=== PATIENT | male | born 1945 | race Caucasian/White ===

== ENCOUNTER 2020-10-23 22:10 | Emergency (ER) | payer OTHER, MEDICARE ==
[~2020-10-23] VITALS: Ht 190.5 cm; Wt 113.6 kg
--- NOTE | 2020-10-23 22:18 | ED General ---
General Stated Complaint: BLOOD IN URINE History of Present Illness Date Seen by Provider: Oct 23, 2020 Time Seen by Provider: 22:17 Initial Comments 75-year-old male presents with onset of pain with urination and passing clots suddenly today. No preceding illness, fever chills, flank or abdominal pain. History of chronic low back pain and had physical therapy today prior to the onset of this episode. Denies history of UTIs, kidney stones, prostate or bladder problems. Followed at the [facility] here in town. Allergies and Home Medications Allergies Coded Allergies: No Allergy Information Available (Unverified , 10/23/20) Home Medications Sulfamethoxazole/Trimethoprim 1 Each Tablet, 1 EACH PO BID Prescribed by: RADHA LEE on 10/23/20 [id number] Patient Home Medication List Home Medication List Reviewed: Yes Review of Systems Review of Systems Constitutional: no symptoms reported; No fever, No malaise, No weakness, No weight loss Respiratory: no symptoms reported Cardiovascular: no symptoms reported Gastrointestinal: No abdominal pain, No constipation, No diarrhea, No loss of appetite, No nausea, No vomiting Genitourinary: see HPI; No decreased output, No discharge; dysuria; No frequency; hematuria; No hesitancy, No incontinence, No nocturia; pain (resolve d) Musculoskeletal: back pain (chronic); No joint swelling Past Wnaalrg-Fztgxq-Mmjjxt Hx Past Med/Social Hx: Reviewed Nursing Past Med/Soc Hx Physical Exam Vital Signs Capillary Refill : Height, Weight, BMI Height: '" Weight: lbs. oz. kg; BMI Method: General Appearance: No Apparent Distress, WD/WN Gastrointestinal: Normal Bowel Sounds, Non Tender, Soft; No Distended, No Guarding, No Hepatomegaly, No Rebound, No Tenderness Back: Normal Inspection, No CVA Tenderness Progress/Results/Core Measures Suspected Sepsis SIRS Temperature: Pulse: Respiratory Rate: Blood Pressure / Mean: Results/Orders Lab Results Laboratory Tests Test 10/23/20 22:25 Range/Units Urine Color YELLOW Urine Clarity CLEAR Urine pH 6.5 5-9 Urine Specific [place] 1.010 L 1.016-1.022 Urine Protein NEGATIVE NEGATIVE Urine Glucose (UA) NEGATIVE NEGATIVE Urine Ketones NEGATIVE NEGATIVE Urine Nitrite NEGATIVE NEGATIVE Urine Bilirubin NEGATIVE NEGATIVE Urine Urobilinogen 1.0 < = 1.0 MG/DL Urine Leukocyte Esterase NEGATIVE NEGATIVE Urine RBC (Auto) 1+ H NEGATIVE Urine RBC RARE /HPF Urine WBC RARE /HPF Urine Squamous Epithelial Cells RARE /HPF Urine Crystals NONE /LPF Urine Bacteria NEGATIVE /HPF Urine Casts NONE /LPF Urine Mucus NEGATIVE /LPF Urine Culture Indicated NO My Orders Orders - RADHA LEE DO Urinalysis (10/23/20 22:18) Vital Signs/I&O Capillary Refill : Departure Impression Primary Impression: Hematuria Qualified Codes: R31.9 - Hematuria, unspecified Additional Impression: Dysuria Disposition: 01 HOME, SELF-CARE Condition: Stable Departure-Patient Inst. Decision time for Depature: 22:44 Patient Instructions: Blood in the Urine (Hematuria) in Adults Add. Discharge Instructions: Follow up with your doctor at the MD clinic in [facility] in 1 week to recheck your urine for blood. See a doctor sooner if your symptoms get worse....you develop fever, abdominal pain or have difficulty urinating Scripts Sulfamethoxazole/Trimethoprim (Bactrim Ds Tablet) 1 Each Tablet 1 EACH PO BID, #14 TAB Prov: RADHA LEE DO 10/23/20 RADHA LEE DO Oct 23, 2020 22:18
[2020-10-23 22:25] VITALS: BP 141/63
[2020-10-23 22:37] LABS: BILIRUBIN,URINE NEGATIVE (NEGATIVE); CLARITY,URINE CLEAR; COLOR,URINE YELLOW; GLUCOSE, URINE (UA) NEGATIVE (NEGATIVE); KETONES,URINE NEGATIVE (NEGATIVE); LEUKOCYTE ESTERASE ,URINE NEGATIVE (NEGATIVE); NITRITE,URINE NEGATIVE (NEGATIVE); PH,URINE 6.5 (5-9); PROTEIN,URINE NEGATIVE (NEGATIVE)
[2020-10-23 22:38] LABS: BACTERIA,URINE NEGATIVE /HPF; RBC,URINE RARE /HPF; SQUAMOUS EPITHELIAL CELL,UR RARE /HPF; WBC,URINE RARE /HPF
[2020-10-23] MEDS ORDERED: SULF1TAB35 PO (22:46)
== END 2020-10-23 22:53 | disposition home or self-care (01) ==
LOC: ER FS 22:13
DX: R31.9 Hematuria, unspecified (principal); R30.0 Dysuria
CPT/HCPCS: 81000; 99282

== ENCOUNTER → 2021-02-15 | Outpatient (CLI) | payer OTHER, MEDICARE ==
[~2021-02-15] MED LIST: SULF1TAB38 PO
--- NOTE | 2021-02-15 15:11 | Diagnostic Imaging Report ---
Supine abdomen at 2:26. Indication: Hematuria There are no prior studies available for comparison. There is no evidence for a pathological calcification overlying the kidneys or the expected paths of the ureters. There is no mass or organomegaly appreciated either. There is a small amount of gas in both large and small bowel in a nonspecific fashion. There is no sign of a bowel obstruction. There is a moderate amount of fecal material in the ascending and transverse colon. The osseous structures are intact. Impression: 1. The bowel gas pattern is nonspecific. There is no acute abnormality identified. 2. There is no evidence for nephrolithiasis or urolithiasis. If further study for an obstructive calculus is desired however, then CT of the abdomen and pelvis would be recommended. Dictated by: Dictated on workstation # [id number]
== END ==
LOC: RAD FS 14:14
PROVIDERS: ATTEND Urology
DX: R31.9 Hematuria, unspecified (principal)
CPT/HCPCS: 74018

== ENCOUNTER → 2021-09-12 | Outpatient (CLI) | payer OTHER | LOC: CARDFS 12:58 | PROVIDERS: ATTEND Internal Medicine Cardiovascular Disease | DX: I35.2 Nonrheumatic aortic (valve) stenosis with insufficiency (principal); I11.9 Hypertensive heart disease without heart failure; I25.10 Atherosclerotic heart disease of native coronary artery without angina pectoris | CPT/HCPCS: 93306 ==

== ENCOUNTER → 2021-09-25 | Outpatient (CLI) | payer OTHER ==
[~2021-09-25] MED LIST changes: +CATHETER FLUSH 10 ML SYR IVP PRN; +REGADENOSON 0.4 MG/5 ML SYR (LEXISCAN) IV ONE
[2021-09-25 09:17] VITALS: BP 153/83
[2021-09-25 09:31] VITALS: BP 148/69
--- NOTE | 2021-09-25 12:04 | Cardiology Stress Test Report ---
Stress Test Report Date of Procedure/Referring: Date of Procedure: September 25, 2021 PCP Gregg Chávez MD Admitting Physician Yajaira Cruz Indications: HTN Baseline Heart Rate: 63 Baseline Blood Pressure: Blood Pressure Systolic: 148 Blood Pressure Diastolic: 69 Baseline Vitals Vital Signs Date Time Temp Pulse Resp B/P (MAP) Pulse Ox O2 Delivery O2 Flow Rate FiO2 09/25/21 09:17 65 17 153/83 (106) Baseline EKG: Baseline EKG: NSR Summary After explaining the procedure to the patient, he signed a consent and then brought to the stress nuclear laboratory. Patient received 0.4 mg Lexiscan for stress test, ECG, heart rate and blood pressure were monitored continuously. Resting and stress dose of radio tracer were injected, imaging was acquired and reviewed in short axis, horizontal long axis and vertical long axis views. TID: 1.07 SSS: 6 SDS: 2 EF: 43 1. Poor exercise tolerance, patient exercised for 2 minutes 34 seconds achieving 78% of maximal expected heart rate, test was terminated and converted to Lexiscan Myoview stress test. 2. Patient tolerated Lexiscan well 3. Minimal nondiagnostic EKG changes noted during test 4. Reversible ischemia involving the mid to apical anterior wall and anterolateral wall 5. Normal left ventricular size with hypokinesia at the anterior wall, ejection fraction 43% CC: SHANTE Cano BASHAR J MD September 25, 2021 12:04
== END ==
LOC: CARD 08:15
PROVIDERS: ATTEND Internal Medicine Cardiovascular Disease
DX: I10 Essential (primary) hypertension (principal); I25.10 Atherosclerotic heart disease of native coronary artery without angina pectoris
CPT/HCPCS: 78452; 93017

== ENCOUNTER 2021-10-16 07:31 | Day surgery (SDC) | payer OTHER ==
[2021-10-16] VITALS (11 sets, daily range): BP systolic 125–175; BP diastolic 54–71
[~2021-10-16] VITALS: Ht 190.5 cm; Wt 106.5 kg
[~2021-10-16 07:31] MED LIST changes: -CATHETER FLUSH 10 ML SYR IVP PRN; -REGADENOSON 0.4 MG/5 ML SYR (LEXISCAN) IV ONE
[2021-10-16] MEDS ORDERED: NS IV 1000 ML 1,000 ML ONE (07:44)
[2021-10-16] MEDS ORDERED: HEParin (CATH LAB) 2,000 ML IV ONE (07:44)
[2021-10-16] MEDS ORDERED: LIDOCAINE 1% INJ 20 ML VIAL ONE (07:44)
[2021-10-16] MEDS ORDERED: NS IV 1000 ML 1,000 ML IV SCH ×2 (07:45→11:30)
[2021-10-16 08:15] LABS: HEMATOCRIT 42 % (40-54); HEMOGLOBIN 14.3 g/dL (13.3-17.7); MEAN CORPUSCULAR HEMOGLOBIN 31 pg (25-34); MEAN CORPUSCULAR HGB CONC 34 g/dL (32-36); MEAN CORPUSCULAR VOLUME 91 fL (80-99); MEAN PLATELET VOLUME 10.3 fL (9.0-12.2); PLATELET COUNT 155 10^3/uL (130-400); WHITE BLOOD COUNT 6.1 10^3/uL (4.3-11.0)
--- NOTE | 2021-10-16 08:20 | Diagnostic Imaging Report ---
INDICATION: Pre-heart catheterization. TIME OF EXAM: 8:00 a.m. No prior studies are available for comparison. FINDINGS: The heart size is normal. The pulmonary vascularity is unremarkable. The lungs are clear. No infiltrate, effusion or pneumothorax is detected. IMPRESSION: No acute cardiopulmonary process is detected. Dictated by: Dictated on workstation # [id number]
[2021-10-16 08:22] LABS: ALBUMIN 4.3 GM/DL (3.2-4.5)
[2021-10-16 08:23] LABS: CALCIUM 9.8 MG/DL (8.5-10.1)
[2021-10-16 08:25] LABS: TOTAL PROTEIN 7.2 GM/DL (6.4-8.2)
[2021-10-16 08:26] LABS: BILIRUBIN,TOTAL 0.7 MG/DL (0.1-1.0)
[2021-10-16 08:29] LABS: CREATININE SERUM 1.02 MG/DL (0.60-1.30)
[2021-10-16 08:34] LABS: INR 0.9 (0.8-1.4); PROTHROMBIN TIME PATIENT 12.6 SEC (12.2-14.7)
[2021-10-16] MEDS ORDERED: ACET325T38 PO (08:35)
[2021-10-16] MEDS ORDERED: FAMO20TA3 PO (08:35)
[2021-10-16] MEDS ORDERED: CHOL-34 PO (08:35)
[2021-10-16] MEDS ORDERED: TIMO5DRO5 OP (08:35)
[2021-10-16] MEDS ORDERED: MELA3TAB39 PO (08:35)
[2021-10-16] MEDS ORDERED: ASPI-1238 PO (08:35)
[2021-10-16] MEDS ORDERED: LATA7.5D OP (08:35)
[2021-10-16] MEDS ORDERED: POLY17PO6 PO (08:35)
[2021-10-16] MEDS ORDERED: METO-333 PO (08:52)
[2021-10-16] MEDS ORDERED: TIZA-186 PO (08:52)
[2021-10-16] MEDS ORDERED: DULO20CA19 PO (08:52)
[2021-10-16] MEDS ORDERED: FINA5TAB6 PO (08:52)
[2021-10-16] MEDS ORDERED: LOSA25TA41 PO (08:52)
[2021-10-16] MEDS ORDERED: CYPR4TAB41 PO (08:52)
[2021-10-16] MEDS ORDERED: SILD100T67 PO (08:52)
--- NOTE | 2021-10-16 10:44 | Conscious Sedation/ASA ---
Conscious Sedation Pre-Proced Time 10:44 ASA Score 3 For ASA 3 and 4: Consider anesthesia and medical clearance. Also, for patients with a history of failed moderate sedation consider anesthesia. Airway Lungs Heart ASA score ASA 1: a normal healthy patient ASA 2: a patient with a mild systemic disease (mid diabetes, controlled hypertension, obesity x ASA 3: a patient with a severe systemic disease that limits activity (angina, COPD, prior Myocardial infarction) ASA 4: a patient with an incapacitating disease that is a constant threat to life (CHF, renal failure) ASA 5: a moribund patient not expected to survive 24 hrs. (ruptured aneurysm) ASA 6: a declared brain- patient whose organs are being harvested. For emergent operations, add the letter E after the classification Mallampati Classification Grade 3 Sedation Plan Analgesia, Amnesia, Plan communicated to team members, Discussed options with patient/fam, Discussed risks with patient/fam The patient is an appropriate candidate to undergo the planned procedure, sedation, and anesthesia. The patient immediately re-assessed prior to indication. KRISTEN JACKSON MD Oct 16, 2021 10:44
[2021-10-16] MEDS ORDERED: fentaNYL INJ 100 MCG/2 ML AMP ONE (10:45)
[2021-10-16] MEDS ORDERED: MIDAZOLAM 5 MG/5 ML (VERSED) VIAL ONE (10:45)
[2021-10-16] MEDS ORDERED: VERAPAMIL 5 MG/2 ML (CALAN) VIAL IV ONE (10:45)
[2021-10-16] MEDS ORDERED: NITRO DRIP 25000 MCG/D5W 250 ML IV ONE (10:46)
[2021-10-16] MEDS ORDERED: HEParin 1000 UNIT/ML (10ML VIAL) FOR BOLUS ONE (10:46)
--- NOTE | 2021-10-16 11:27 | Discharge Inst-Post CATH ---
Discharge Inst-CATH/EP Problems Reviewed?: Yes Post Cardiac Cath/EP D/C Inst Follow Up/Plan Appointment with Dr Chávez in 2-4 weeks <b>CARDIAC CATH/EP PROCEDURE DISCHARGE INSTRUCTIONS</b> ACTIVITY * Go Home directly and rest. * Limit activity of the leg (or wrist if it was used) for 7 days including aerobics, swimming, jogging, bicycling, etc. * Restrict stair-climbing for 7 days if possible, if not, climb up with your non-cath leg, then bring together on the same step. * Avoid lifting, pushing, pulling or excessive movement of the affected extremity for 7 days. * Customary sexual activity may be resumed after 2 days-use caution not to use a position that strains or causes pain to the affected extremity. * No driving for 24 hours. * NO SMOKING. * Avoid straining for bowel movements for 7 days. * Gentle walking on level ground is allowed. * Returning to work will depend on the type of procedure and the results. Your doctor will discuss this with you. CALL YOUR DOCTOR FOR ANY OF THE FOLLOWING: *If bleeding from the puncture site occurs- Apply gentle pressure to site with clean cloth and call your doctor or EMS. * If a knot or lump forms under the skin, increases in size, or causes pain. * If bruising appears to be worsening or moving further down your leg instead of disappearing. * Temperature above 101 F. CARE OF YOUR GROIN INCISION; * Bruising or purple discoloration of the skin near the puncture site is common. * You may shower only, no bathtub bathing for 5 days. Be careful to avoid slipping as your leg may feel stiff. * If a closure device was used on your femoral artery, please see the attached guide regarding care of the device and your leg. * Leave dressing on FOR 24 hours. CARE OF YOUR WRIST INCISION; * Bruising or purple discoloration of the skin near the puncture site is common. * You may shower. * DO NOT submerge wrist. * Leave dressing on FOR 24 hours. KRISTEN CHÁVEZ MD Oct 16, 2021 11:27
--- NOTE | 2021-10-16 11:35 | Cardiac Cath Report ---
Cardiac Cath Report Physician (s)/Lining Printer (s) Physician KRISTEN JCAKSON MD Pre-Procedure Diagnosis Pre-Procedure Diagnosis: Coronary artery disease Post-Procedure Note Procedure Start Date: Oct 16, 2021 Name of Procedure: Left heart catheterization Findings/Procedure Note PROCEDURE NOTE: 76 years old gentleman with severe aortic valve stenosis, had an abnormal stress test, scheduled for cardiac catheterization possible PTCA. After explaining the procedure to the patient, all pros and cons were explained, all questions were answered. The patient signed the consent and then he was placed on the cardiac catheterization laboratory. Groin was prepped SL fashion local anesthesia was used. Sheath placed in the right radial artery, [place] catheter was used, the J-wire across the aortic valve easily and I advanced the [place] catheter to the left ventricular cavity, pressure was measured, pullback LV to aorta was done, engaged the right and left coronary system. Angiogram was done. At the end of the procedure the sheath was removed. Vascular band was used FINDINGS: Hemodynamics LV 149/8, end-diastolic pressure of 8 Aorta 119/66 mean of 87 Peak to peak gradient was 30 mmHg ANATOMY: Left Main is free of obstructive disease Left Anterior Descending is slightly tortuous artery with mild to moderate disease nonobstructive disease Left Circumflex has mild disease nonobstructive disease Right Coronary Artery is dominant artery with mild disease nonobstructive disease LV Gram was not done, pressure was measured CONCLUSION: 1. Mild to moderate coronary artery disease nonobstructive disease 2. Moderate aortic valve stenosis, peak to peak gradient 30 mmHg DISCUSSION AND RECOMMENDATION: Continue with conservative management Anesthesia Type: Conscious Sedation Estimated blood loss (mL): 10 ml Contrast Amount: 44 ml Total Radiation Dose: 432 mGy Post-Procedure Diagnosis Post-operative diagnosis: Chest pain Coronary artery disease Aortic valve stenosis Hypertension KRISTEN JACKSON MD Oct 16, 2021 11:35
== END 2021-10-16 14:55 | disposition home or self-care (01) ==
LOC: CATH 07:31 → SDC 11:40 → CATH 14:55
PROVIDERS: ATTEND Internal Medicine Cardiovascular Disease
DX: I25.10 Atherosclerotic heart disease of native coronary artery without angina pectoris (principal); I10 Essential (primary) hypertension; I35.0 Nonrheumatic aortic (valve) stenosis; G62.9 Polyneuropathy, unspecified; I65.23 Occlusion and stenosis of bilateral carotid arteries; N40.0 Benign prostatic hyperplasia without lower urinary tract symptoms; K46.9 Unspecified abdominal hernia without obstruction or gangrene; H91.90 Unspecified hearing loss, unspecified ear; E78.2 Mixed hyperlipidemia; F32.A Depression, unspecified; F43.10 Post-traumatic stress disorder, unspecified; Z87.891 Personal history of nicotine dependence; Z79.899 Other long term (current) drug therapy
CPT/HCPCS: 36415; 71045; 80053; 80061; 85027; 85610; 85730; 87081; 93005; 93458

== ENCOUNTER 2022-08-19 19:27 | Observation (INO) | payer OTHER, MEDICARE ==
[~2022-08-19] VITALS: Ht 190 cm; Wt 115.6 kg
[~2022-08-19 19:27] MED LIST changes: +ACET325T38 PO; +ASPI-1238 PO; +CHOL-34 PO; +CYPR4TAB41 PO; +DULO20CA19 PO; +FAMO20TA3 PO; +FINA5TAB6 PO; +LATA7.5D OP; +LOSA25TA41 PO; +MELA3TAB39 PO; +METO-333 PO; +POLY17PO6 PO; +SILD100T67 PO; +TIMO5DRO5 OU; +TIZA-186 PO
--- NOTE | 2022-08-19 19:44 | ED General ---
General Stated Complaint: WEAKNESS,SOB,FALL,L HIP PAIN History of Present Illness Date Seen by Provider: Aug 19, 2022 Time Seen by Provider: 19:36 Initial Comments 77-year-old male with PMH of HTN/negative stress test and negative 1 month ago in [place], is here with complaints of ongoing shortness of breath and chest pain on exertion only, for the past 4 weeks or so. Patient states that he ham ot walk more than 100 m without becoming short of breath. Patient also has associated palpitations and feels like his heart is racing. Patient does not have any history of irregular heart rhythms. Denies fever and chills, cough, respiratory symptoms, abdominal pain, diarrhea, nausea and vomiting, dizziness. Allergies and Home Medications Allergies Coded Allergies: omeprazole (Verified Allergy, Unknown, 10/16/21) tramadol (Verified Allergy, Unknown, 10/16/21) Patient Home Medication List Home Medication List Reviewed: Yes Acetaminophen (Tylenol) 325 Mg Tablet, 650 MG PO Q6H PRN for PAIN-MILD (1-4), (Reported) Entered as Reported by: GERRY MURILLO on 10/16/21 0835 Aspirin (Aspirin EC) 81 Mg Tablet.dr, 81 MG PO HS, (Reported) Entered as Reported by: GERRY MURILLO on 10/16/21 0835 Cholecalciferol (Vitamin D3) (Vitamin D3) 25 Mcg (1000 Unit) Tablet, 25 MCG PO DAILY, (Reported) Entered as Reported by: GERRY MURILLO on 10/16/21 0835 Cyproheptadine HCl (Cyproheptadine HCl) 4 Mg Tablet, 8 MG PO HS, (Reported) Entered as Reported by: GERRY MURILLO on 10/16/21 08 Duloxetine HCl (Duloxetine HCl) 20 Mg Capsule.dr, 20 MG PO HS, (Reported) Entered as Reported by: GERRY MURILLO on 10/16/21 08 Famotidine (Acid Cricket Coach (FAMOTIDINE)) 20 Mg Tablet, 20 MG PO DAILY, (Reported) Entered as Reported by: GERRY MURILLO on 10/16/21 08 Finasteride (Finasteride) 5 Mg Tablet, 5 MG PO HS, (Reported) Entered as Reported by: GERRY MURILLO on 10/16/21851 Latanoprost/Pf (Latanoprost 0.005% Eye Drop) 0.005 % Drops, 1 DROP OP DAILY, ( Reported) Entered as Reported by: GERRY MURILLO on 10/16/21834 Losartan Potassium (Losartan Potassium) 25 Mg Tablet, 25 MG PO HS, (Reported) Entered as Reported by: GERRY MURILLO on 10/16/21851 Melatonin (Melatonin) 3 Mg Tablet, 9-12 MG PO HS PRN for SLEEP, (Reported) Entered as Reported by: GERRY MURILLO on 10/16/21834 Metoprolol Tartrate (Metoprolol Tartrate) 25 Mg Tablet, 12.5 MG PO HS, (Reported) Entered as Reported by: GERRY MURILLO on 10/16/21851 Polyethylene Glycol 3350 (Miralax) 17 Gram Powd.pack, 17 GM PO DAILY PRN for CONSTIPATION-2ND LINE, (Reported) Entered as Reported by: GERRY MURILLO on 10/16/21834 Sildenafil Citrate (Sildenafil Citrate) 100 Mg Tablet, 100 MG PO DAILY PRN for ED, (Reported) Entered as Reported by: GERRY MURILLO on 10/16/21851 Timolol Maleate (Timolol Maleate 0.5%) 0.5 % Drops, 1 DROP OP BID, (Reported) Entered as Reported by: GERRY MURILLO on 10/16/21834 Tizanidine HCl (Tizanidine HCl) 4 Mg Tablet, 2 MG PO BID PRN for MUSCLE SPASMS, (Reported) Entered as Reported by: GERRY MURILLO on 10/16/21851 Review of Systems Review of Systems Constitutional: no symptoms reported EENTM: no symptoms reported Respiratory: dyspnea on exertion Cardiovascular: chest pain, palpitations Gastrointestinal: no symptoms reported Genitourinary: no symptoms reported Musculoskeletal: no symptoms reported Skin: no symptoms reported Psychiatric/Neurological: No Symptoms Reported Hematologic/Lymphatic: No Symptoms Reported Immunological/Allergic: no symptoms reported Past Fhroivd-Ortrac-Jghhxd Hx Seasonal Allergies Seasonal Allergies: No Past Medical History Surgeries: Yes Gallbladder, Orthopedic Respiratory: No Cardiac: Yes High Cholesterol, Hypertension Neurological: No Genitourinary: Yes Benign Prostatic Hyperpl Gastrointestinal: No Musculoskeletal: Yes Chronic Back Pain Endocrine: No HEENT: No Cancer: No Psychosocial: No Integumentary: No Blood Disorders: No Physical Exam Vital Signs Vital Signs - First Documented 4/11/23 19:35 Temp 36.9 Pulse 130 Resp 20 B/P (MAP) 153/86 (108) Pulse Ox 94 O2 Delivery Room Air Capillary Refill : Height, Weight, BMI Height: '" Weight: lbs. oz. kg; 29.34 BMI Method: General Appearance: No Apparent Distress, WD/WN HEENT: PERRL/EOMI, Normal ENT Inspection Neck: Full Range of Motion, Normal Inspection Respiratory: Chest Non Tender, Lungs Clear, Normal Breath Sounds Cardiovascular: No Edema, Normal Peripheral Pulses, Systolic Murmur, Irregularly Irregular, Tachycardia Gastrointestinal: Normal Bowel Sounds, Non Tender, Soft Back: Normal Inspection Extremity: Normal Range of Motion Neurologic/Psychiatric: Alert, Oriented x3, No Motor/Sensory Deficits, Normal Mood/Affect, principal technical writer II-XII Norm as Tested Skin: Normal Color Lymphatic: No Adenopathy Focused Exam Lactate Level 08/19/22 19:38: Lactic Acid Level 2.59*H Lactic Acid Level Laboratory Tests Test 08/19/22 19:38 Lactic Acid Level 2.59 MMOL/L (0.50-2.00) *H Progress/Results/Core Measures Suspected Sepsis SIRS Temperature: Pulse: Respiratory Rate: Laboratory Tests 08/19/22 19:38: White Blood Count 7.5 Blood Pressure / Mean: 08/19/22 19:38: Lactic Acid Level 2.59*H Laboratory Tests 08/19/22 19:38: Creatinine 1.06, INR Comment 0.9, Platelet Count 194, Total Bilirubin 0.5 Results/Orders Lab Results Laboratory Tests Test 08/19/22 19:38 08/19/22 22:13 Range/Units White Blood Count 7.5 4.3-11.0 10^3/uL Red Blood Count 4.62 4.30-5.52 10^6/uL Hemoglobin 14.4 13.3-17.7 g/dL Hematocrit 42 40-54 % Mean Corpuscular Volume 90 80-99 fL Mean Corpuscular Hemoglobin 31 25-34 pg Mean Corpuscular Hemoglobin Concent 35 32-36 g/dL Red Cell Distribution Width 14.0 10.0-14.5 % Platelet Count 194 130-400 10^3/uL Mean Platelet Volume 11.3 9.0-12.2 fL Immature Granulocyte % (Auto) 0 % Neutrophils (%) (Auto) 63 42-75 % Lymphocytes (%) (Auto) 28 12-44 % Monocytes (%) (Auto) 6 0-12 % Eosinophils (%) (Auto) 2 0-10 % Basophils (%) (Auto) 0 0-10 % Neutrophils # (Auto) 4.7 1.8-7.8 X 10^3 Lymphocytes # (Auto) 2.1 1.0-4.0 X 10^3 Monocytes # (Auto) 0.5 0.0-1.0 X 10^3 Eosinophils # (Auto) 0.2 0.0-0.3 10^3/uL Basophils # (Auto) 0.0 0.0-0.1 10^3/uL Immature Granulocyte # (Auto) 0.0 0.0-0.1 10^3/uL Prothrombin Time 12.4 12.2-14.7 SEC INR Comment 0.9 0.8-1.4 Activated Partial Thromboplast Time 27 24-35 SEC D-Dimer 0.69 H 0.00-0.49 UG/ML Sodium Level 140 135-145 MMOL/L Potassium Level 4.1 3.6-5.0 MMOL/L Chloride Level 104 98-107 MMOL/L Carbon Dioxide Level 23 21-32 MMOL/L Anion Gap 13 5-14 MMOL/L Blood Urea Nitrogen 19 H 7-18 MG/DL Creatinine 1.06 0.60-1.30 MG/DL Estimat Glomerular Filtration Rate 71 BUN/Creatinine Ratio 18 Glucose Level 139 H 70-105 MG/DL Lactic Acid Level 2.59 *H 0.50-2.00 MMOL/L Calcium Level 10.3 H 8.5-10.1 MG/DL Corrected Calcium 9.9 8.5-10.1 MG/DL Magnesium Level 2.0 1.6-2.4 MG/DL Total Bilirubin 0.5 0.1-1.0 MG/DL Aspartate Amino Transf (AST/SGOT) 33 5-34 U/L Alanine Aminotransferase (ALT/SGPT) 32 0-55 U/L Alkaline Phosphatase 111 40-136 U/L Troponin I < 0.30 <0.30 NG/ML Pro-B-Type Natriuretic Peptide 989.9 H <450.0 PG/ML Total Protein 7.4 6.4-8.2 GM/DL Albumin 4.5 3.2-4.5 GM/DL My Orders Orders - MANUEL FLORES MD Chest 1 View Ap/Pa Only (08/19/22 19:44) Cbc With Automated Diff (08/19/22 19:44) Comprehensive Metabolic Panel (08/19/22 19:44) Fibrin Degradation Products (08/19/22 19:44) Drug Screen Stat (Urine) (08/19/22 19:44) Lactic Acid Analyzer (08/19/22:44) Magnesium (08/19/22 19:44) Protime With Inr (08/19/22:44) Partial Thromboplastin Time (08/19/22 19:44) Ua Culture If Indicated (08/19/22:44) Probnp Fs (08/19/22:44) Troponin I Fs (08/19/22 19:44) Ekg Tracing (08/19/22 20:10) Monitor-Rhythm Ecg Trace Only (08/19/22 20:10) Ed Iv/Invasive Line Start (08/19/22 20:11) Diltiazem Injection (Cardizem Injection) (08/19/22 20:15) Diltiazem Drip Pre-Mix (Cardizem Drip Pr (08/19/22 20:12) Cbc With Automated Diff (08/19/22 20:39) Comprehensive Metabolic Panel (08/19/22 20:39) Drug Screen Stat (Urine) (08/19/22 20:39) Fibrin Degradation Products (08/19/22 20:39) Lactic Acid Analyzer (08/19/22 20:39) Magnesium (08/19/22 20:39) Partial Thromboplastin Time (08/19/22 20:39) Probnp Fs (08/19/22 20:39) Protime With Inr (08/19/22 20:39) Troponin I Fs (08/19/22 20:39) Ua Culture If Indicated (08/19/22 20:39) Hydrocodone/Apap 5/325 Tablet (Lortab 5 (08/19/22 21:30) Ed Iv/Invasive Line Start (08/19/22 21:53) Ns Iv 1000 Ml (Sodium Chloride 0.9%) (08/19/22 21:53) Catheter(Urinary) Insert & Ass 03,15 (08/19/22 21:54) Lidocaine 2% (Urojet) (Xylocaine Urojet) (08/19/22 22:00) Ed Admission (Communication) (08/19/22 22:29) Enoxaparin Injection (Lovenox Injection) (08/19/22 22:30) Medications Given in ED Current Medications Medications Dose Ordered Sig/Eriberto Route Start Time Stop Time Status Last Admin Dose Admin Acetaminophen/ Hydrocodone Bitart 1 ea ONCE ONCE PO 08/19/22 21:30 08/19/22 21:31 DC 08/19/22 21:32 1 EA Diltiazem HCl 10 mg ONCE ONCE IVP 08/19/22 20:15 08/19/22 20:16 DC 08/19/22 20:30 10 MG Enoxaparin Sodium 80 mg ONCE ONCE SC 08/19/22 22:30 08/19/22 22:31 DC 08/19/22 22:41 80 MG Vital Signs/I&O 08/19/22 08/19/22 08/19/22 19:35 20:30 20:37 Temp 36.9 Pulse 130 129 110 Resp 20 B/P (MAP) 153/86 (108) 155/62 141/58 Pulse Ox 94 O2 Delivery Room Air Capillary Refill : Progress Note : Progress Note 1. NEW ONSET A-FIB WITH RVR & DEHYDRATION: - CXR: no acute findings - EKG: A-fib with RVR - Troponin: undetected - CBC/CMP: unremarkable - D-dimer: 0.69, but age related elevation - UA - Lactic acid is 2.59 - Cardizem bolus and drip STAT - Lovenox 80mg s.c. STAT - NS IVF bolus STAT - Pt's mixing picker tender is Dr Chávez. Pt had a negative stress test and cath approximately one month ago - Accepted for admission to ICU ECG Initial ECG Impression Date: Aug 19, 2022 Initial ECG Impression Time: 19:38 Initial ECG Rate: 122 Initial ECG Rhythm: A Fib/Flutter Initial ECG Intervals irregular Initial ECG Impression: Atrial Fibrillation w/RVR Initial ECG Comparisson: No Previous ECG Available Diagnostic Imaging Diagonstic Imaging: Xray Plain Films/CT/US/NM/MRI: chest Departure Communication (Admissions) Time/Spoke to Admitting Phy: 22:[address] Gonzales, and accepted for admission to ICU Impression Primary Impression: New onset a-fib Disposition: 30 STILL A PATIENT Condition: Improved Admissions Decision to Admit Reason: Admit from ER (General) Decision to Admit/Date: Aug 19, 2022 Time/Decision to Admit Time: 22:00 Transfer Method of Transfer: EMS Departure-Patient Inst. Referrals: SIM MARTINEZ (PCP/Family) Primary Care Physician MANUEL FLORES MD Aug 19, 2022 19:44
[2022-08-19] MEDS ORDERED: dilTIAZem DRIP PRE-MIX 125 ML IV STA (20:12)
[2022-08-19] MEDS ORDERED: HYDROcodone/APAP 5 MG/325 MG (LORTAB) TAB PO ONE (21:30)
[2022-08-19 21:42] LABS: ALANINE AMINOTRANSFERASE 32 U/L (0-55); ALKALINE PHOSPHATASE 111 U/L (40-136); BILIRUBIN,TOTAL 0.5 MG/DL (0.1-1.0); BUN/CREATININE RATIO 18; CALCIUM 10.3 MG/DL (8.5-10.1); CARBON DIOXIDE 23 MMOL/L (21-32); CHLORIDE 104 MMOL/L (98-107); CREATININE SERUM 1.06 MG/DL (0.60-1.30); GFR ESTIMATED 71; GLUCOSE 139 MG/DL (70-105); POTASSIUM 4.1 MMOL/L (3.6-5.0); SODIUM 140 MMOL/L (135-145)
[2022-08-19 21:43] LABS: ALBUMIN 4.5 GM/DL (3.2-4.5); TOTAL PROTEIN 7.4 GM/DL (6.4-8.2)
[2022-08-19 21:45] LABS: HEMATOCRIT 42 % (40-54); HEMOGLOBIN 14.4 g/dL (13.3-17.7); MEAN CORPUSCULAR HEMOGLOBIN 31 pg (25-34); MEAN CORPUSCULAR HGB CONC 35 g/dL (32-36); MEAN CORPUSCULAR VOLUME 90 fL (80-99); WHITE BLOOD COUNT 7.5 10^3/uL (4.3-11.0)
[2022-08-19 21:46] LABS: BASOPHILS % (AUTO) 0 % (0-10); EOSINOPHILS # (AUTO) 0.2 10^3/uL (0.0-0.3); EOSINOPHILS % (AUTO) 2 % (0-10); LYMPHOCYTES # (AUTO) 2.1 X 10^3 (1.0-4.0); LYMPHOCYTES % (AUTO) 28 % (12-44); MEAN PLATELET VOLUME 11.3 fL (9.0-12.2); MONOCYTES # (AUTO) 0.5 X 10^3 (0.0-1.0); MONOCYTES % (AUTO) 6 % (0-12); NEUTROPHILS # (AUTO) 4.7 X 10^3 (1.8-7.8); NEUTROPHILS % (AUTO) 63 % (42-75); PLATELET COUNT 194 10^3/uL (130-400)
[2022-08-19] MEDS ORDERED: NS IV 1000 ML 1,000 ML IV STA (21:53)
[2022-08-19 21:57] LABS: FIBRIN DEGRADATION PRODUCTS 0.69 UG/ML (0.00-0.49); INR 0.9 (0.8-1.4); PROTHROMBIN TIME PATIENT 12.4 SEC (12.2-14.7)
[2022-08-19] MEDS ORDERED: LIDOCAINE UROJET 2% GEL 10 ML PKG TOP ONE (22:00)
[2022-08-19 22:22] LABS: BILIRUBIN,URINE NEGATIVE (NEGATIVE); CLARITY,URINE CLEAR; COLOR,URINE YELLOW; GLUCOSE, URINE (UA) NEGATIVE (NEGATIVE); KETONES,URINE NEGATIVE (NEGATIVE); LEUKOCYTE ESTERASE ,URINE NEGATIVE (NEGATIVE); NITRITE,URINE NEGATIVE (NEGATIVE); PROTEIN,URINE NEGATIVE (NEGATIVE)
[2022-08-19] MEDS ORDERED: ENOXAPARIN 80 MG/0.8 ML (LOVENOX) SYR SC ONE (22:30)
[2022-08-19 22:56] LABS: AMPHETAMINE SCREEN, URINE NEGATIVE (NEGATIVE); BARBITURATE SCREEN URINE NEGATIVE (NEGATIVE); BENZODIAZEPINES SCREEN URINE NEGATIVE (NEGATIVE); CANNABINOID SCREEN, URINE NEGATIVE (NEGATIVE); COCAINE SCREEN URINE NEGATIVE (NEGATIVE); METHADONE STAT NEGATIVE (NEGATIVE); OPIATE SCREEN URINE NEGATIVE (NEGATIVE); OXYCODONE STAT NEGATIVE (NEGATIVE); PROPOXYPHENE STAT NEGATIVE (NEGATIVE); TRICYCLIC ANTIDEPRESSANTS SCRE NEGATIVE (NEGATIVE)
[2022-08-19 23:03] LABS: BACTERIA,URINE NEGATIVE /HPF; SQUAMOUS EPITHELIAL CELL,UR 0-2 /HPF; WBC,URINE 0-2 /HPF
[2022-08-19 23:04] LABS: HYALINE CASTS, URINE RARE /LPF
[2022-08-20] MEDS ORDERED: NS IV 1000 ML 1,000 ML ONE (01:12)
[2022-08-20] MEDS ORDERED: NS IV 500 ML 500 ML IV PRN ×2 (01:30→05:15)
[2022-08-20] MEDS ORDERED: MELATONIN 3 MG TABLET PO PRN ×2 (01:45→05:15)
[2022-08-20] MEDS ORDERED: ACETAMINOPHEN 325 MG TABLET PO PRN ×2 (01:45→05:15)
[2022-08-20] MEDS ORDERED: dilTIAZem DRIP 125 MG/125 ML DRIP IV SCH (01:45)
[2022-08-20] MEDS ORDERED: KETOROLAC 15 MG/ML VIAL IV PRN (01:45)
[2022-08-20] MEDS: NS IV 1000 ML 1,000 ML IV SCH ×3 (02:02→19:51)
--- NOTE | 2022-08-20 03:12 | Tele-ICU Progress Note ---
Progress Note 77M with HTN transferred from [facility] for new onset afib with RVR. He was given diltiazem 10 mg IV x1. He is now in afib with rate of 80. Continuous diltiazem infusion was ordered but never started. Noted to have negative stress test 1 month ago. - afib: Now rate controlled. Electroytes normal. Troponin negative. Cardiology managing. Focused Exam Lactate Level 08/19/22 19:38: Lactic Acid Level 2.59*H 08/19/22 22:45: Lactic Acid Level 1.65 Height, Weight, BMI Height: '" Weight: lbs. oz. kg; 32.40 BMI Method: KARLA VALDIVIA MD Aug 20, 2022 03:12
[2022-08-20 04:04] LABS: BASOPHILS % (AUTO) 0 % (0-10); EOSINOPHILS # (AUTO) 0.1 10^3/uL (0.0-0.3); EOSINOPHILS % (AUTO) 2 % (0-10); HEMATOCRIT 37 % (40-54); HEMOGLOBIN 12.6 g/dL (13.3-17.7); LYMPHOCYTES # (AUTO) 1.7 10^3/uL (1.0-4.0); LYMPHOCYTES % (AUTO) 24 % (12-44); MEAN CORPUSCULAR HEMOGLOBIN 31 pg (25-34); MEAN CORPUSCULAR HGB CONC 34 g/dL (32-36); MEAN CORPUSCULAR VOLUME 90 fL (80-99); MONOCYTES # (AUTO) 0.6 10^3/uL (0.0-1.0); MONOCYTES % (AUTO) 8 % (0-12); NEUTROPHILS # (AUTO) 4.8 10^3/uL (1.8-7.8); NEUTROPHILS % (AUTO) 66 % (42-75); PLATELET COUNT 143 10^3/uL (130-400); WHITE BLOOD COUNT 7.3 10^3/uL (4.3-11.0)
[2022-08-20 04:19] LABS: POTASSIUM 3.8 MMOL/L (3.6-5.0)
[2022-08-20 04:20] LABS: CALCIUM 9.2 MG/DL (8.5-10.1)
[2022-08-20 04:25] LABS: CREATININE SERUM 0.85 MG/DL (0.60-1.30); PHOSPHORUS 3.4 MG/DL (2.3-4.7)
[2022-08-20 04:27] LABS: MAGNESIUM 1.8 MG/DL (1.6-2.4)
[2022-08-20] MEDS: KCL 20 MEQ TAB (K-DUR) PO SCH (04:35)
[2022-08-20] MEDS: MAGNESIUM 1 GM/100 ML IVPB 100 ML IV SCH ×2 (04:35→04:46)
[2022-08-20] MEDS: POTASSIUM CL 10MEQ/50ML IVPB 50 ML IV SCH (04:35)
[2022-08-20] MEDS ORDERED: BISACODYL 10 MG SUPP (DULCOLAX) PR PRN (05:15)
[2022-08-20] MEDS ORDERED: ONDANSETRON 4 MG/2 ML (SDV) Z0FRAN IV PRN (05:15)
[2022-08-20] MEDS ORDERED: polyethylene glycoL POWDER 17 GM (MIRALAX) PACK PO PRN (05:15)
[2022-08-20] MEDS ORDERED: ONDANSETRON 4 MG (ZOFRAN) ORAL DISSOLVE TAB PO PRN (05:15)
[2022-08-20] MEDS ORDERED: HYDROmorphone 2 MG/ML VIAL (DILAUDID) IV PRN (05:15)
[2022-08-20] MEDS ORDERED: MILK OF MAGNESIA 400 MG/5 ML 30 ML UDC PO PRN (05:15)
[2022-08-20] MEDS ORDERED: diphenhydrAMINE 50 MG/ML INJ (BENADRYL) IVP PRN (05:15)
[2022-08-20] MEDS ORDERED: CALCIUM CARBONATE 500 MG (TUMS) TAB.CHEW PO PRN (05:15)
[2022-08-20] MEDS ORDERED: diphenhydrAMINE 25 MG TAB (BENADRYL) PO PRN (05:15)
[2022-08-20] MEDS ORDERED: ANTACID SUSP 30 ML UDC (MYLANTA) PO PRN (05:15)
[2022-08-20] MEDS ORDERED: LACTULOSE SYRUP 10GM/15ML (ENULOSE) 30ML UDC PO PRN (05:15)
[2022-08-20 05:18] LABS: ALBUMIN 3.7 GM/DL (3.2-4.5)
[2022-08-20 05:21] LABS: TOTAL PROTEIN 6.3 GM/DL (6.4-8.2)
[2022-08-20 05:23] LABS: BILIRUBIN,TOTAL 0.5 MG/DL (0.1-1.0)
[2022-08-20 05:26] LABS: BILIRUBIN,DIRECT 0.2 MG/DL (0.0-0.3); BILIRUBIN,INDIRECT 0.3 MG/DL
[2022-08-20] MEDS ORDERED: POTASSIUM CL 10MEQ/50ML IVPB 50 ML IV SCH (06:00)
[2022-08-20] MEDS ORDERED: KCL 20 MEQ TAB (K-DUR) PO SCH (06:00)
[2022-08-20] MEDS ORDERED: MAGNESIUM 1 GM/100 ML IVPB 100 ML IV SCH (06:00)
--- NOTE | 2022-08-20 07:39 | History & Physical ---
ARIADNE LEDEZMA 08/20/22 0739: History of Present Illness History of Present Illness Reason for visit/HPI CC: New onset Afib RVR and dehydration HPI: Mr. Johnson is a 77 yo male with a pmhx significant for HTN, high cholesterol, and BPH. Pt presented to the ED on the day of admission with cc of weakness and SOB. In ED patient reports that he has been experiencing these symptoms for the past 4 weeks. Pt does not have a history of irregular heart rhythms. Pt received negative stress test 1 month ago. 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 Today he reports that he is feeling better. He still feels weak and SOB on exertion. Pt denies any falls recently. Pt denies any CP, nausea, vomiting, abdominal pain, or dizziness. Pt denies any new or worsening symptoms. Date of Admission Aug 20, 2022 at 00:40 Date Seen by a Provider: Aug 20, 2022 Time Seen by a Provider: 07:34 I consulted on this patient on 08/20/22 07:33 Attending Physician Yajaira Cruz Admitting Physician Admitting Physician: Kaela Bae DO Attending Physician: Kaela Bae DO Consult Allergies and Home Medications Allergies Coded Allergies: omeprazole (Verified Allergy, Unknown, 10/16/21) tramadol (Verified Allergy, Unknown, 10/16/21) Patient Home Medication List Home Medication List Reviewed: Yes Acetaminophen (Tylenol) 325 Mg Tablet, 650 MG PO Q6H PRN for PAIN-MILD (1-4), (Reported) Entered as Reported by: GERRY MURILLO on 10/16/21834 Last Action: Reviewed Aspirin (Aspirin EC) 81 Mg Tablet., 81 MG PO HS, (Reported) Entered as Reported by: GERRY MURILLO on 10/16/21834 Last Action: Reviewed Cholecalciferol (Vitamin D3) (Vitamin D3) 25 Mcg (1000 Unit) Tablet, 25 MCG PO DAILY, (Reported) Entered as Reported by: GERRY MURILLO on 10/16/21834 Last Action: Reviewed Cyproheptadine HCl (Cyproheptadine HCl) 4 Mg Tablet, 8 MG PO HS, (Reported) Entered as Reported by: GERRY MURILLO on 10/16/21851 Last Action: Reviewed Duloxetine HCl (Duloxetine HCl) 20 Mg Capsule., 20 MG PO HS, (Reported) Entered as Reported by: GERRY MURILLO on 10/16/21851 Last Action: Reviewed Famotidine (Acid Options Trader (FAMOTIDINE)) 20 Mg Tablet, 20 MG PO BID, (Reported) Entered as Reported by: GERRY MURILLO on 10/16/21834 Last Action: Reviewed Finasteride (Finasteride) 5 Mg Tablet, 5 MG PO HS, (Reported) Entered as Reported by: GERRY MURILLO on 10/16/21851 Last Action: Reviewed Ibuprofen (Ibuprofen) 200 Mg Tablet, 200 MG PO BID PRN for PAIN-MILD (1-4), (Reported) Entered as Reported by: NAOMY HORVATH on 08/20/221551 Last Action: Reviewed Latanoprost (Xalatan) 0.005 % Drops, 1 DROP OU HS, (Reported) Entered as Reported by: NAOMY HORVATH on 08/20/221551 Last Action: Reviewed Losartan Potassium (Losartan Potassium) 25 Mg Tablet, 25 MG PO HS, (Reported) Entered as Reported by: GERRY MURILLO on 10/16/21851 Last Action: Reviewed Lovastatin (Lovastatin) 40 Mg Tablet, 40 MG PO HS, (Reported) Entered as Reported by: NAOMY HORVATH on 08/20/221551 Last Action: Reviewed Melatonin (Melatonin) 3 Mg Tablet, 12 MG PO HS, (Reported) Entered as Reported by: GERRY MURILLO on 10/16/21834 Last Action: Reviewed Methyl Salicylate/Menthol (Analgesic [place] 15%-10%) 15 %-10 % Cream..g., 1 APPLIC TP TID PRN for PAIN-BREAKTHROUGH, (Reported) Entered as Reported by: NAOMY HORVATH on 08/20/221551 Last Action: Reviewed Metoprolol Tartrate (Metoprolol Tartrate) 25 Mg Tablet, 12.5 MG PO HS, (Reported) Entered as Reported by: GERRY MURILLO on 10/16/21851 Last Action: Reviewed Multivitamin (Multivitamin) 1 Each Tablet, 1 EACH PO DAILY, (Reported) Entered as Reported by: ANOMY HORVATH on 08/20/221551 Last Action: Reviewed Polyethylene Glycol 3350 (Miralax) 17 Gram Powd.pack, 17 GM PO DAILY PRN for CONSTIPATION-2ND LINE, (Reported) Entered as Reported by: NAOMY HORVATH on 08/20/22 7342 Last Action: Reviewed Timolol Maleate (Timolol Maleate 0.5%) 0.5 % Drops, 1 DROP OU BID, (Reported) Entered as Reported by: GERRY MURILLO on 10/16/21834 Last Action: Reviewed Tizanidine HCl (Tizanidine HCl) 4 Mg Tablet, 2 MG PO BID PRN for MUSCLE SPASMS, (Reported) Entered as Reported by: GERRY MURILLO on 10/16/21851 Last Action: Reviewed Discontinued Medications Latanoprost/Pf (Latanoprost 0.005% Eye Drop) 0.005 % Drops, 1 DROP OP DAILY, (Reported) Discontinued Reason: Prescription changed Entered as Reported by: GERRY MURILLO on 10/16/21834 Polyethylene Glycol 3350 (Miralax) 17 Gram Powd.pack, 17 GM PO DAILY PRN for CONSTIPATION-2ND LINE, (Reported) Discontinued Reason: Duplicate Order Entered as Reported by: GERRY MURILLO on 10/16/21834 Last Action: Discontinued Sildenafil Citrate (Sildenafil Citrate) 100 Mg Tablet, 100 MG PO DAILY PRN for ED, (Reported) Discontinued Reason: No Longer Taking Entered as Reported by: GERRY MURILLO on 10/16/21851 Last Action: Discontinued Past Ijxioro-Ztmmzz-Fikjhv Hx Patient Social History Tobacco Use?: No Substance use?: No Alcohol Use?: No Pt feels they are or have been: No Seasonal Allergies Seasonal Allergies: No Current Status Advance Directives: No Communicates: Verbally Primary Language: Croatian Preferred Spoken Language: Croatian Is interpretation needed?: No Past Medical History Surgeries: Gallbladder, Orthopedic High Cholesterol, Hypertension Benign Prostatic Hyperpl Chronic Back Pain Blood Disorders: No Review of Systems Constitutional: No chills, No diaphoresis, No fever; weakness Respiratory: No cough, No dyspnea on exertion; short of breath Cardiovascular: No chest pain Gastrointestinal: no symptoms reported Musculoskeletal: no symptoms reported Skin: no symptoms reported Psychiatric/Neurological: No Symptoms Reported All Other Systems Reviewed Negative Unless Noted: Yes Physical Exam Vital Signs Vital Signs - First Documented 08/19/22 08/20/22 19:35 08:09 Temp 36.9 Pulse 130 Resp 20 B/P (MAP) 153/86 (108) Pulse Ox 94 O2 Delivery Room Air FiO2 21 Capillary Refill : Less Than 3 Seconds Height, Weight, BMI Height: '" Weight: lbs. oz. kg; 32.40 BMI Method: General Appearance: No Apparent Distress, WD/WN HEENT: PERRL/EOMI Neck: Normal Inspection, Non Tender, Supple Respiratory: Chest Non Tender, Lungs Clear, Normal Breath Sounds, No Accessory Muscle Use, No Respiratory Distress Cardiovascular: Irregularly Irregular Gastrointestinal: Normal Bowel Sounds, No Organomegaly, No Pulsatile Mass, Non Tender, Soft Extremity: Normal Capillary Refill, No Pedal Edema Neurologic/Psychiatric: Alert, Oriented x3, Normal Mood/Affect Skin: Normal Color, Warm/Dry Lymphatic: No Adenopathy Assessment/Plan Assessment and Plan hx of HTN hx of High Cholesterol hx of BPH New onset Afib RVR Dehydration Diltizam drip CBC CMP replace electrolytes as indicated Dilaudid prn Echo, EKG Appreciate Cardio and EICU Continue home meds as indicated DVT Prophylaxis: SCDs and Lovenox Code status: Full Disposition: likely 1-2 midnights pending pt status Admission Diagnosis Admission Status: Inpatient Order (span 2 midnights) Reason for Inpatient Admission: Afib RVR KAELA BAE 08/21/22 0502: Allergies and Home Medications Allergies Coded Allergies: omeprazole (Verified Allergy, Unknown, 10/16/21) tramadol (Verified Allergy, Unknown, 10/16/21) Patient Home Medication List Acetaminophen (Tylenol) 325 Mg Tablet, 650 MG PO Q6H PRN for PAIN-MILD (1-4), (Reported) Entered as Reported by: GERRY MURILLO on 10/16/21834 Last Action: Reviewed Aspirin (Aspirin EC) 81 Mg Tablet.dr, 81 MG PO HS, (Reported) Entered as Reported by: GERRY MURILLO on 10/16/21834 Last Action: Reviewed Cholecalciferol (Vitamin D3) (Vitamin D3) 25 Mcg (1000 Unit) Tablet, 25 MCG PO DAILY, (Reported) Entered as Reported by: GERRY MURILLO on 10/16/21834 Last Action: Reviewed Cyproheptadine HCl (Cyproheptadine HCl) 4 Mg Tablet, 8 MG PO HS, (Reported) Entered as Reported by: GERRY MURILLO on 10/16/21851 Last Action: Reviewed Duloxetine HCl (Duloxetine HCl) 20 Mg Capsule.dr, 20 MG PO HS, (Reported) Entered as Reported by: GERRY MURILLO on 10/16/21851 Last Action: Reviewed Famotidine (Acid Options Trader (FAMOTIDINE)) 20 Mg Tablet, 20 MG PO BID, (Reported) Entered as Reported by: GERRY MURILLO on 10/16/21834 Last Action: Reviewed Finasteride (Finasteride) 5 Mg Tablet, 5 MG PO HS, (Reported) Entered as Reported by: GERRY MURILLO on 10/16/21851 Last Action: Reviewed Ibuprofen (Ibuprofen) 200 Mg Tablet, 200 MG PO BID PRN for PAIN-MILD (1-4), (Reported) Entered as Reported by: NAOMY HORVATH on 08/20/221551 Last Action: Reviewed Latanoprost (Xalatan) 0.005 % Drops, 1 DROP OU HS, (Reported) Entered as Reported by: NAOMY HORVATH on 08/20/221551 Last Action: Reviewed Losartan Potassium (Losartan Potassium) 25 Mg Tablet, 25 MG PO HS, (Reported) Entered as Reported by: GERRY MURILLO on 10/16/21851 Last Action: Reviewed Lovastatin (Lovastatin) 40 Mg Tablet, 40 MG PO HS, (Reported) Entered as Reported by: NAOMY HORVATH on 08/20/221551 Last Action: Reviewed Melatonin (Melatonin) 3 Mg Tablet, 12 MG PO HS, (Reported) Entered as Reported by: GERRY MURILLO on 10/16/21834 Last Action: Reviewed Methyl Salicylate/Menthol (Analgesic [place] 15%-10%) 15 %-10 % Cream..g., 1 APPLIC TP TID PRN for PAIN-BREAKTHROUGH, (Reported) Entered as Reported by: NAOMY HORVATH on 08/20/221551 Last Action: Reviewed Metoprolol Tartrate (Metoprolol Tartrate) 25 Mg Tablet, 12.5 MG PO HS, (Reported) Entered as Reported by: GERRY MURILLO on 10/16/21851 Last Action: Reviewed Multivitamin (Multivitamin) 1 Each Tablet, 1 EACH PO DAILY, (Reported) Entered as Reported by: NAOMY HORVATH on 08/20/221551 Last Action: Reviewed Polyethylene Glycol 3350 (Miralax) 17 Gram Powd.pack, 17 GM PO DAILY PRN for CONSTIPATION-2ND LINE, (Reported) Entered as Reported by: NAOMY HORVATH on 08/20/221551 Last Action: Reviewed Timolol Maleate (Timolol Maleate 0.5%) 0.5 % Drops, 1 DROP OU BID, (Reported) Entered as Reported by: GERRY MURILLO on 10/16/21834 Last Action: Reviewed Tizanidine HCl (Tizanidine HCl) 4 Mg Tablet, 2 MG PO BID PRN for MUSCLE SPASMS, (Reported) Entered as Reported by: GERRY MURILLO on 10/16/21851 Last Action: Reviewed Discontinued Medications Latanoprost/Pf (Latanoprost 0.005% Eye Drop) 0.005 % Drops, 1 DROP OP DAILY, (Reported) Discontinued Reason: Prescription changed Entered as Reported by: GERRY MURILLO on 10/16/21834 Polyethylene Glycol 3350 (Miralax) 17 Gram Powd.pack, 17 GM PO DAILY PRN for CONSTIPATION-2ND LINE, (Reported) Discontinued Reason: Duplicate Order Entered as Reported by: GERRY MURILLO on 10/16/21834 Last Action: Discontinued Sildenafil Citrate (Sildenafil Citrate) 100 Mg Tablet, 100 MG PO DAILY PRN for ED, (Reported) Discontinued Reason: No Longer Taking Entered as Reported by: GERRY MURILLO on 10/16/21851 Last Action: Discontinued Past Kxtkdmv-Evpibj-Ivcfpi Hx Patient Social History Marrital Status: Employed/Student: retired Smoking Status: Former Smoker Past Medical History High Cholesterol, Hypertension Review of Systems Constitutional: see HPI Respiratory: short of breath Cardiovascular: palpitations Physical Exam General Appearance: No Apparent Distress, WD/WN, Chronically ill, Obese Respiratory: Lungs Clear, Normal Breath Sounds Cardiovascular: Regular Rate, Rhythm Assessment/Plan Assessment and Plan Suspect CHETNA Needs therapy Problems: (1) New onset a-fib Status: Acute Admission Diagnosis Admission Status: Observation Supervisory-Addendum Brief Verification & Attestation Participated in pt care: history, MDM, physical Personally performed: exam, history, MDM, supervision of care Care discussed with: Medical Student Procedures: n/a Results interpretation: Verified all documentation Verification and Attestation of Medical Student E/M Service A medical student performed and documented this service in my presence. I reviewed and verified all information documented by the medical student and made modifications to such information, when appropriate. I personally performed the physical exam and medical decision making. Kaela Bae, Aug 21, 2022,05:01 ARIADNE LEDEZMA Aug 20, 2022 07:39 KAELA BAE DO Aug 21, 2022 05:02
[2022-08-20 08:09] VITALS: BP 137/74
[2022-08-20] MEDS: SENNOSIDES 8.6 MG (SENOKOT) TAB PO SCH ×2 (08:14→21:43)
[2022-08-20] MEDS: DOCUSATE SODIUM 100 MG (COLACE) CAP PO SCH ×2 (08:14→21:43)
[2022-08-20] MEDS ORDERED: RT-ALBUTEROL/IPRATROPIUM 3 ML (DUONEB) VIAL INH PRN (08:15)
[2022-08-20] MEDS ORDERED: KCL 20 MEQ TAB (K-DUR) PO ONE (09:00)
--- NOTE | 2022-08-20 09:52 | Diagnostic Imaging Report ---
INDICATION: Dyspnea. Upright portable AP view of the chest is obtained with comparison made study of 10/16/2021. Heart size and pulmonary vascularity within normal limits. There is no pneumothorax or consolidation. There is no evidence of adverse change. IMPRESSION: No acute abnormality. Dictated by: Dictated on workstation # [id number]
[2022-08-20] MEDS: RT-ALBUTEROL/IPRATROPIUM 3 ML (DUONEB) VIAL INH SCH ×4 (10:27→22:03)
[2022-08-20] MEDS: ENOXAPARIN 80 MG/0.8 ML (LOVENOX) SYR SC SCH ×2 (11:28→21:58)
--- NOTE | 2022-08-20 11:40 | Consultation-Cardiology ---
HPI-Cardiology Cardiology Consultation Date of Consultation 08/20/22 Date of Admission Time Seen by Provider: 11:32 Indication: Atrial fibrillation HPI 77-year-old gentleman with history of aortic valve stenosis, hypertension. Has been having increasing dyspnea, fatigue and loss of energy. Came to the emergency room last night and noted to be in atrial fibrillation with rapid ventricular response. Patient was admitted to ICU and I was notified of the consult this morning. On my evaluation he was in atrial fibrillation with rapid ventricular response. He was started on Cardizem drip, heart rate is better controlled. Still having fatigue and loss of energy. Home Medications & Allergies Allergies: Coded Allergies: omeprazole (Verified Allergy, Unknown, 10/16/21) tramadol (Verified Allergy, Unknown, 10/16/21) Home Medication List Reviewed: Yes YDR-Odbyoi-Isnpoq Hx Patient Social History Marital Status: Employed/Student: retired 2nd Hand Smoke Exposure: No Recent Hopitalizations: Yes Have you traveled recently?: No Alcohol Use?: No Past Medical History Discussed below Family Medical History Significant Family History: No Pertinent Family Hx Review of Systems-General Review of Systems Constitutional: No chills, No diaphoresis, No fever; malaise, weakness EENTM: no symptoms reported Respiratory: see HPI; No cough; dyspnea on exertion; No hemoptysis, No orthopnea, No phlegm; short of breath; No stridor, No wheezing, No other Cardiovascular: see HPI; No chest pain, No edema, No Hx of Intervention; palpitations; No syncope, No vascular heart diseas, No other Gastrointestinal: no symptoms reported Genitourinary: no symptoms reported Musculoskeletal: no symptoms reported Skin: no symptoms reported Psychiatric/Neurological: No Symptoms Reported All Other Systems Reviewed Negative Unless Noted: Yes Reviewed Test Results Reviewed Test Results Lab Laboratory Tests Test 08/19/22 19:38 08/19/22 22:13 08/19/22 22:45 08/20/22 03:50 Range/Units White Blood Count 7.5 7.3 4.3-11.0 10^3/uL Red Blood Count 4.62 4.07 L 4.30-5.52 10^6/uL Hemoglobin 14.4 12.6 L 13.3-17.7 g/dL Hematocrit 42 37 L 40-54 % Mean Corpuscular Volume 90 90 80-99 fL Mean Corpuscular Hemoglobin 31 31 25-34 pg Mean Corpuscular Hemoglobin Concent 35 34 32-36 g/dL Red Cell Distribution Width 14.0 13.8 10.0-14.5 % Platelet Count 194 143 130-400 10^3/uL Mean Platelet Volume 11.3 11.0 9.0-12.2 fL Immature Granulocyte % (Auto) 0 0 % Neutrophils (%) (Auto) 63 66 42-75 % Lymphocytes (%) (Auto) 28 24 12-44 % Monocytes (%) (Auto) 6 8 0-12 % Eosinophils (%) (Auto) 2 2 0-10 % Basophils (%) (Auto) 0 0 0-10 % Neutrophils # (Auto) 4.7 4.8 1.8-7.8 10^3/uL Lymphocytes # (Auto) 2.1 1.7 1.0-4.0 10^3/uL Monocytes # (Auto) 0.5 0.6 0.0-1.0 10^3/uL Eosinophils # (Auto) 0.2 0.1 0.0-0.3 10^3/uL Basophils # (Auto) 0.0 0.0 0.0-0.1 10^3/uL Immature Granulocyte # (Auto) 0.0 0.0 0.0-0.1 10^3/uL Prothrombin Time 12.4 12.2-14.7 SEC INR Comment 0.9 0.8-1.4 Activated Partial Thromboplast Time 27 24-35 SEC D-Dimer 0.69 H 0.00-0.49 UG/ML Sodium Level 140 142 135-145 MMOL/L Potassium Level 4.1 3.8 3.6-5.0 MMOL/L Chloride Level 104 110 H 98-107 MMOL/L Carbon Dioxide Level 23 20 L 21-32 MMOL/L Anion Gap 13 12 5-14 MMOL/L Blood Urea Nitrogen 19 H 20 H 7-18 MG/DL Creatinine 1.06 0.85 0.60-1.30 MG/DL Estimat Glomerular Filtration Rate 71 88 BUN/Creatinine Ratio 18 24 Glucose Level 139 H 127 H 70-105 MG/DL Lactic Acid Level 2.59 *H 1.65 0.90 0.50-2.00 MMOL/L Calcium Level 10.3 H 9.2 8.5-10.1 MG/DL Corrected Calcium 9.9 8.5-10.1 MG/DL Magnesium Level 2.0 1.8 1.6-2.4 MG/DL Total Bilirubin 0.5 0.5 0.1-1.0 MG/DL Aspartate Amino Transf (AST/SGOT) 33 30 5-34 U/L Alanine Aminotransferase (ALT/SGPT) 32 31 0-55 U/L Alkaline Phosphatase 111 74 40-136 U/L Troponin I < 0.30 <0.30 NG/ML Pro-B-Type Natriuretic Peptide 989.9 H <450.0 PG/ML Total Protein 7.4 6.3 L 6.4-8.2 GM/DL Albumin 4.5 3.7 3.2-4.5 GM/DL Urine Color YELLOW Urine Clarity CLEAR Urine pH 6.0 5-9 Urine Specific Williams 1.020 1.016-1.022 Urine Protein NEGATIVE NEGATIVE Urine Glucose (UA) NEGATIVE NEGATIVE Urine Ketones NEGATIVE NEGATIVE Urine Nitrite NEGATIVE NEGATIVE Urine Bilirubin NEGATIVE NEGATIVE Urine Urobilinogen 0.2 < = 1.0 MG/DL Urine Leukocyte Esterase NEGATIVE NEGATIVE Urine RBC (Auto) NEGATIVE NEGATIVE Urine RBC NONE /HPF Urine WBC 0-2 /HPF Urine Squamous Epithelial Cells 0-2 /HPF Urine Crystals NONE /LPF Urine Bacteria NEGATIVE /HPF Urine Casts PRESENT /LPF Urine Hyaline Casts RARE /LPF Urine Mucus NEGATIVE /LPF Urine Culture Indicated NO Urine Opiates Screen NEGATIVE NEGATIVE Urine Oxycodone Screen NEGATIVE NEGATIVE Urine Methadone Screen NEGATIVE NEGATIVE Urine Propoxyphene Screen NEGATIVE NEGATIVE Urine Barbiturates Screen NEGATIVE NEGATIVE Ur Tricyclic Antidepressants Screen NEGATIVE NEGATIVE Urine Phencyclidine Screen NEGATIVE NEGATIVE Urine Amphetamines Screen NEGATIVE NEGATIVE Urine Methamphetamines Screen NEGATIVE NEGATIVE Urine Benzodiazepines Screen NEGATIVE NEGATIVE Urine Cocaine Screen NEGATIVE NEGATIVE Urine Cannabinoids Screen NEGATIVE NEGATIVE Phosphorus Level 3.4 2.3-4.7 MG/DL Direct Bilirubin 0.2 0.0-0.3 MG/DL Indirect Bilirubin 0.3 MG/DL Physical Exam Physical Exam Vital Signs Vital Signs - First Documented 08/19/22 08/20/22 19:35 08:09 Temp 36.9 Pulse 130 Resp 20 B/P (MAP) 153/86 (108) Pulse Ox 94 O2 Delivery Room Air FiO2 21 Capillary Refill : Less Than 3 Seconds Height, Weight, BMI Height: '" Weight: lbs. oz. kg; 32.40 BMI Method: General Appearance: No Apparent Distress, WD/WN HEENT: PERRL/EOMI Neck: Normal Inspection, Non Tender, Supple Respiratory: Chest Non Tender, Lungs Clear, Normal Breath Sounds, No Accessory Muscle Use, No Respiratory Distress Cardiovascular: Systolic Murmur, Irregularly Irregular Gastrointestinal: Normal Bowel Sounds, No Organomegaly, No Pulsatile Mass, Non Tender, Soft Back: Normal Inspection Extremity: Normal Capillary Refill, No Pedal Edema Neurologic/Psychiatric: Alert, Oriented x3, Normal Mood/Affect Skin: Normal Color, Warm/Dry Lymphatic: No Adenopathy A/P-Cardiology Admission Diagnosis Atrial fibrillation Tachycardia Shortness of breath Aortic stenosis Assessment/Plan Atrial fibrillation with rapid ventricular response, tachycardic Started on Cardizem drip I am planning to proceed with LOLIS and possible cardioversion Shortness of breath, generalized fatigue Most probably secondary to the atrial fibrillation CHADVASC score 4, starting oral anticoagulation Coronary artery disease, mild to moderate nonobstructive disease per cardiac catheterization done October 16, 2021 Aortic stenosis, 2D echo done September 12, 2021 showing mild concentric dypertrophy, EF 50-55%. Grade 1 diastolic dysfunction. moderate to severely dilated left atrium. Moderate to severe stenosis with peak gradient 34mmHg, mean gradient 21mmHg. calculated valve area 0.98, believe it is an underestimation of the valve area. Mild regurgitation. PA 20-25mmHg. Repeat echocardiogram done on August 20, 2022 showing moderate to severe aortic valve stenosis, planning to evaluate the valve with LOLIS, biatrial enlargement with normal LV size and function. Hypertension, monitor blood pressure Hyperlipidemia, maintained on lovastatin, I will evaluate lipid profile History of peripheral neuropathy and numbness in the feet. Carotid artery stenosis, moderate Left ICA stenosis, mild Right ICA stenosis per carotid duplex done August 2021, continue to monitor. BPH. High abdominal hernia CT scan of the lung was done on July 18, 2021 showed granulomatous lung disease, small punctate noncalcified nodule in the lung bases recommended 6 months follow-up History of depression, late onset PTSD Hearing loss. KRISTEN JACKSON MD Aug 20, 2022 11:40
--- NOTE | 2022-08-20 11:44 | Cardiac Procedure Note-CS/ASA ---
Pre-Procedure Note Pre-Op Procedure Note Date of Available H&P: Aug 20, 2022 Date H&P Reviewed: Aug 20, 2022 Time H&P Reviewed: 11:43 History & Physical: H&P Reviewed, Patient Examed, No changes noted Pre-Operative Diagnosis: a fib Moderate Sedation PreProcedure Time 11:43 ASA Score 3 Airway Lungs Heart ASA score ASA 1: a normal healthy patient ASA 2: a patient with a mild systemic disease (mid diabetes, controlled hypertension, obesity ASA 3: a patient with a severe systemic disease that limits activity (angina, COPD, prior Myocardial infarction) ASA 4: a patient with an incapacitating disease that is a constant threat to life (CHF, renal failure) ASA 5: a moribund patient not expected to survive 24 hrs. (ruptured aneurysm) ASA 6: a declared brain- patient whose organs are being harvested. For emergent operations, add the letter E after the classification Mallampati Classification Grade 3 Sedation Plan Analgesia, Amnesia, Plan communicated to team members, Discussed options with patient/fam, Discussed risks with patient/fam The patient is an appropriate candidate to undergo the planned procedure, sedation, and anesthesia. The patient immediately re-assessed prior to indication. KRISTEN JACKSON MD Aug 20, 2022 11:44
[2022-08-20] MEDS ORDERED: NS IV 500 ML 500 ML ONE (13:07)
[2022-08-20] MEDS ORDERED: LIDOCAINE 2% VISCOUS 15 ML UDC ONE (13:07)
--- NOTE | 2022-08-20 14:15 | Anesthesia-General Post-Op ---
MAC Patient Condition Mental Status/LOC: Same as Preop Cardiovascular: Satisfactory Nausea/Vomiting: Absent Respiratory: Satisfactory Pain: Controlled Complications: Absent Post Op Complications Complications None Follow Up Care/Instructions Patient Instructions None needed. Anesthesiology Discharge Order Discharge Order Patient is doing well, no complaints, stable vital signs, no apparent adverse anesthesia problems. No complications reported per nursing. CASSIE MCKEE DO Aug 20, 2022 14:15
--- NOTE | 2022-08-20 14:27 | Cardioversion ---
Cardioversion PROCEDURE PHYSICIAN: Kristen Chávez DATE OF PROCEDURE: 08/20/22 DIRECT EXTERNAL ELECTRICAL CARDIOVERSION: Indications: Atrial Fibrillation with rapid ventricular rate Preoperative diagnoses: Atrial Fibrillation with rapid ventricular rate Postoperative diagnosis: Sinus rhythm, Successful Electrical Cardioversion Anesthesia: By Anesthesia services Complications: None Specimen: None Contrast: 0 Flouroscopy: none Procedure Details: The patient was brought the labor economics teacher after informed consent was taken, all the risks and complications were explained including the risk of stroke. Electrical cardioversion was carried out with anesthesia support with propofol. 200 joules of synchronized shock was delivered through external patches which promptly restored sinus rhythm. The patient tolerated the procedure well. Conclusions: Successful electrical cardioversion terminating atrial fibrillation KRISTEN CHÁVEZ MD Aug 20, 2022 14:27
[2022-08-20] MEDS ORDERED: AMIODARONE FOR BOLUS 150 MG in NS (IVPB) 100 ML IV ONE (14:30)
[2022-08-20] MEDS ORDERED: proPOfol 200 MG/20 ML (DIPRIVAN) VIAL IV ONE (14:39)
[2022-08-20 15:02] VITALS: BP 131/70
[2022-08-20] MEDS: AMIODARONE INJECTION 450 MG in NORMAL SALINE 250 ML IV SCH ×2 (15:21→23:21)
[2022-08-20] MEDS ORDERED: MULT-1136 PO (15:52)
[2022-08-20] MEDS ORDERED: POLY17PO6 PO (15:52)
[2022-08-20] MEDS ORDERED: METH85CR TP (15:52)
[2022-08-20] MEDS ORDERED: IBUP-2473 PO (15:52)
[2022-08-20] MEDS ORDERED: LATA2.5D19 OU (15:52)
[2022-08-20] MEDS ORDERED: LOVA40TA2 PO (15:52)
[2022-08-20] MEDS: RT-BUDESONIDE NEBS 0.5 MG/2ML (PULMICORT) AMP INH SCH (22:04)
[2022-08-21] MEDS: RT-ALBUTEROL/IPRATROPIUM 3 ML (DUONEB) VIAL INH SCH ×4 (02:43→14:24)
[2022-08-21 04:44] LABS: HEMOGLOBIN 11.7 g/dL (13.3-17.7)
[2022-08-21 04:46] LABS: BASOPHILS % (AUTO) 0 % (0-10); EOSINOPHILS # (AUTO) 0.1 10^3/uL (0.0-0.3); EOSINOPHILS % (AUTO) 2 % (0-10); HEMATOCRIT 34 % (40-54); LYMPHOCYTES # (AUTO) 1.4 10^3/uL (1.0-4.0); LYMPHOCYTES % (AUTO) 17 % (12-44); MEAN CORPUSCULAR HEMOGLOBIN 31 pg (25-34); MEAN CORPUSCULAR HGB CONC 34 g/dL (32-36); MEAN CORPUSCULAR VOLUME 92 fL (80-99); MEAN PLATELET VOLUME 11.4 fL (9.0-12.2); MONOCYTES # (AUTO) 0.6 10^3/uL (0.0-1.0); MONOCYTES % (AUTO) 7 % (0-12); NEUTROPHILS # (AUTO) 5.8 10^3/uL (1.8-7.8); NEUTROPHILS % (AUTO) 74 % (42-75); PLATELET COUNT 134 10^3/uL (130-400); WHITE BLOOD COUNT 7.9 10^3/uL (4.3-11.0)
[2022-08-21 05:06] LABS: ALBUMIN 3.7 GM/DL (3.2-4.5); CALCIUM 9.1 MG/DL (8.5-10.1); CREATININE SERUM 0.87 MG/DL (0.60-1.30); MAGNESIUM 1.9 MG/DL (1.6-2.4); PHOSPHORUS 2.9 MG/DL (2.3-4.7); POTASSIUM 3.9 MMOL/L (3.6-5.0); TOTAL PROTEIN 6.1 GM/DL (6.4-8.2)
[2022-08-21] MEDS: POTASSIUM CL 10MEQ/50ML IVPB 50 ML IV SCH (05:21)
[2022-08-21] MEDS: MAGNESIUM 1 GM/100 ML IVPB 100 ML IV SCH ×3 (05:21→07:00)
[2022-08-21] MEDS: KCL 20 MEQ TAB (K-DUR) PO SCH (05:22)
[2022-08-21] MEDS ORDERED: AMIO200T65 PO (07:35)
[2022-08-21] MEDS ORDERED: RIVA20TA PO (07:35)
[2022-08-21] MEDS ORDERED: METO-351 PO (07:35)
--- NOTE | 2022-08-21 07:43 | Cardiology Progress Note ---
Subjective Date Seen by Provider: Aug 21, 2022 Time Seen by Provider: 07:35 Subjective/Events-last exam Patient was seen at bedside, laying down comfortably Asking to go home, feeling better Review of Systems General: No Chills, No Night Sweats, No Fatigue, No Malaise, No Appetite, No Other HEENT: No Head Aches, No Visual Changes, No Eye Pain, No Ear Pain, No Dyspha rylan, No Sinus Congestion, No Post Nasal Drip, No Sore Throat, No Other Pulmonary: Dyspnea; No Cough, No Pleuritic Chest Pain, No Other Cardiovascular: No: Chest Pain, Palpitations, Orthopnea, Paroxysmal Noc. Dyspnea, Edema, Lt Headedness, Other Focused Exam Lactate Level 08/19/22 19:38: Lactic Acid Level 2.59*H 08/19/22 22:45: Lactic Acid Level 1.65 08/20/22 03:50: Lactic Acid Level 0.90 Objective-Cardiology Exam Last Set of Vital Signs Vital Signs 08/20/22 08/21/22 08/21/22 08/21/22 08:09 00:00 06:00 07:03 Temp 36.7 Pulse 88 Resp 22 B/P (MAP) 146/86 (106) Pulse Ox 90 O2 Delivery Room Air FiO2 21 I&O Intake and Output 08/20/22 23:59 Intake Total 809 ml Output Total 1475 ml Balance -666 ml Intake Oral 550 ml IV Total 259 ml Output Urine Total 1475 ml Daily Weight Change No General: Alert, Oriented X3, Cooperative HEENT: Atraumatic, PERRLA Neck: Supple, No JVD, No Thyromegaly Lungs: Clear to Auscultation, Normal Air Movement Heart: Regular Rate, Normal S1, Normal S2, Other (Systolic murmur at the left sternal border) Abdomen: Normal Bowel Sounds, Soft, No Tenderness, No Hepatosplenomegaly, No Masses Extremities: No Clubbing, No Cyanosis, Normal Pulses, No Tenderness/Swelling, Other (Pedal edema) Skin: No Rashes, No Breakdown, No Significant Lesion Neuro: Normal Gait, Normal Speech, Strength at 5/5 X4 Ext, Normal Tone, Sensation Intact Psych/Mental Status: Mental Status NL, Mood NL Results Lab Laboratory Tests 08/21/22 04:19 A/P-Cardiology Admission Diagnosis Atrial fibrillation Tachycardia Shortness of breath Aortic stenosis Assessment/Plan New onset atrial fibrillation atrial fibrillation with rapid ventricular response. Status post LOLIS and electrical cardioversion on August 20, 2022 Started on amiodarone bolus and a drip We will continue on oral amiodarone and increase Toprol-XL to 25 mg daily Shortness of breath, generalized fatigue Most probably secondary to the atrial fibrillation CHADVASC score 4, starting oral anticoagulation, starting Xarelto Coronary artery disease, mild to moderate nonobstructive disease per cardiac catheterization done October 16, 2021 Aortic stenosis, 2D echo done September 12, 2021 showing mild concentric dypertrophy, EF 50-55%. Grade 1 diastolic dysfunction. moderate to severely dilated left atrium. Moderate to severe stenosis with peak gradient 34mmHg, mean gradient 21mmHg. calculated valve area 0.98, believe it is an underestimation of the valve area. Mild regurgitation. PA 20-25mmHg. Repeat echocardiogram done on August 20, 2022 showing moderate to severe aortic valve stenosis, planning to evaluate the valve with LOLIS, biatrial enlargement with normal LV size and function. Hypertension, monitor blood pressure Hyperlipidemia, maintained on lovastatin, I will evaluate lipid profile History of peripheral neuropathy and numbness in the feet. Carotid artery stenosis, moderate Left ICA stenosis, mild Right ICA stenosis per carotid duplex done August 2021, continue to monitor. BPH. High abdominal hernia CT scan of the lung was done on July 18, 2021 showed granulomatous lung disease, small punctate noncalcified nodule in the lung bases recommended 6 months follow-up History of depression, late onset PTSD Hearing loss. KRISTEN JACKSON MD Aug 21, 2022 07:42
--- NOTE | 2022-08-21 07:50 | Progress Note ---
LEDEZMAARIADNE Michael 08/21/22 0750: Subjective Date Seen by a Provider: Aug 21, 2022 Time Seen by a Provider: 07:49 Subjective/Events-last exam F/u on new onset A-fib Today patient reports that he no longer feels weak. He feels better since being cardioverted yesterday. No new or worsening sx. He says he is ready to go home. Denies any CP, SOB, SOLIS, N/V, chills, or weakness. No other complaints. Review of Systems General: No Chills, No Night Sweats, No Fatigue HEENT: No Head Aches Pulmonary: No Dyspnea, No Cough, No Pleuritic Chest Pain Cardiovascular: No: Chest Pain Gastrointestinal: No: Nausea, Vomiting Neurological: No: Weakness Focused Exam Lactate Level 08/19/22 19:38: Lactic Acid Level 2.59*H 08/19/22 22:45: Lactic Acid Level 1.65 08/20/22 03:50: Lactic Acid Level 0.90 Objective Exam Last Set of Vital Signs Vital Signs Date Time Temp Pulse Resp B/P (MAP) Pulse Ox O2 Delivery O2 Flow Rate FiO2 08/21/22 07:03 90 Room Air 08/21/22 06:00 88 22 146/86 (106) 08/21/22 00:00 36.7 08/20/22 08:09 21 Capillary Refill : Less Than 3 Seconds I&O Intake and Output 08/21/22 00:00 Intake Total 809 ml Output Total 1475 ml Balance -666 ml Intake Oral 550 ml IV Total 259 ml Output Urine Total 1475 ml Daily Weight Change No General: Alert, Oriented X3, No Acute Distress HEENT: Atraumatic, EOMI Neck: Supple Lungs: Clear to Auscultation Heart: Regular Rate, No Murmurs Abdomen: Normal Bowel Sounds, Soft, No Tenderness Extremities: No Clubbing, No Cyanosis, No Edema, Normal Pulses Psych/Mental Status: Mental Status NL Results Lab Laboratory Tests 08/21/22 04:19: White Blood Count 7.9, Red Blood Count 3.72L, Hemoglobin 11.7L, Hematocrit 34L, Mean Corpuscular Volume 92, Mean Corpuscular Hemoglobin 31, Mean Corpuscular Hemoglobin Concent 34, Red Cell Distribution Width 14.2, Platelet Count 134, Mean Platelet Volume 11.4, Immature Granulocyte % (Auto) 0, Neutrophils (%) (Auto) 74, Lymphocytes (%) (Auto) 17, Monocytes (%) (Auto) 7, Eosinophils (%) (Auto) 2, Basophils (%) (Auto) 0, Neutrophils # (Auto) 5.8, Lymphocytes # (Auto) 1.4, Monocytes # (Auto) 0.6, Eosinophils # (Auto) 0.1, Basophils # (Auto) 0.0, Immature Granulocyte # (Auto) 0.0, Percent Immature Platelet Fraction 5.0, Sodium Level 139, Potassium Level 3.9, Chloride Level 108H, Carbon Dioxide Level 20L, Anion Gap 11, Blood Urea Nitrogen 14, Creatinine 0.87, Estimat Glomerular Filtration Rate 88, BUN/Creatinine Ratio 16, Glucose Level 134H, Calcium Level 9.1, Corrected Calcium 9.3, Phosphorus Level 2.9, Magnesium Level 1.9, Total Bilirubin 1.0, Aspartate Amino Transf (AST/SGOT) 29, Alanine Aminotransferase (ALT/SGPT) 29, Alkaline Phosphatase 77, Total Protein 6.1L, Albumin 3.7 Assessment/Plan Assessment/Plan Assess & Plan/Chief Complaint HTN High Cholesterol BPH New onset Afib RVR Dehydration Aortic Stenosis CBC CMP replace electrolytes as indicated Dilaudid prn Amiodorone Echo - Dialated left atrium, and left atrial appendage w no clot or thrombus. Heavily calcified aortic valve leaflet. Normal left ventricular size and function EF 60% Successful cardioversion Appreciate Cardio and EICU Continue home meds as indicated Diet: Cardiac DVT Prophylaxis: SCDs Code status: Full Disposition: likely home Clinical Quality Measures Admission Status Admission Dx hx of HTN hx of High Cholesterol hx of BPH New onset Afib RVR Dehydration Diltizam drip CBC CMP replace electrolytes as indicated Dilaudid prn Echo, EKG Appreciate Cardio and EICU Continue home meds as indicated DVT Prophylaxis: SCDs and Lovenox Code status: Full Disposition: likely 1-2 midnights pending pt status KAELA BAE DO 08/22/22 0449: Supervisory-Addendum Brief Verification & Attestation Participated in pt care: history, MDM, physical Personally performed: exam, history, MDM, supervision of care Care discussed with: Medical Student Procedures: n/a Results interpretation: Verified all documentation Verification and Attestation of Medical Student E/M Service A medical student performed and documented this service in my presence. I reviewed and verified all information documented by the medical student and made modifications to such information, when appropriate. I personally performed the physical exam and medical decision making. Kaela Bae, Aug 22, 2022,04:49 ARIADNE LEDEZMA Aug 21, 2022 07:50 KAELA BAE DO Aug 22, 2022 04:49
[2022-08-21] MEDS ORDERED: KCL 20 MEQ TAB (K-DUR) PO ONE (08:00)
[2022-08-21] MEDS ORDERED: AMIODARONE 200 MG (CORDARONE) TAB PO SCH (09:00)
[2022-08-21] MEDS: ENOXAPARIN 80 MG/0.8 ML (LOVENOX) SYR SC SCH (09:30)
[2022-08-21] MEDS: SENNOSIDES 8.6 MG (SENOKOT) TAB PO SCH (09:54)
[2022-08-21] MEDS: DOCUSATE SODIUM 100 MG (COLACE) CAP PO SCH (09:54)
[2022-08-21] MEDS ORDERED: APIX5TAB PO ×2 (10:09→11:49)
[2022-08-21] MEDS: RT-BUDESONIDE NEBS 0.5 MG/2ML (PULMICORT) AMP INH SCH (10:10)
[2022-08-21] MEDS ORDERED: polyethylene glycoL POWDER 17 GM (MIRALAX) PACK PO PRN (11:15)
[2022-08-21] MEDS ORDERED: METHYL SALICYLATE/MENTHOL (BENGAY, MUSCLE RUB) 3 OZ TUBE TP PRN (11:15)
--- NOTE | 2022-08-21 11:39 | Physical Therapy Evaluation ---
PT Evaluation-General Medical Diagnosis Admission Date Aug 20, 2022 at 00:40 Medical Diagnosis: new onset A-fib Onset Date: Aug 20, 2022 Therapy Diagnosis Therapy Diagnosis: debility/weakness Precautions Precautions/Isolations: Fall Prevention, Standard Precautions Referral Physician: Janet Reason for Referral: Evaluation/Treatment Medical History Pertinent Medical History: HTN Current History ER secondary to weakness/SOA and falls Reviewed History: Yes Social History Home: Single Level Current Living Status: Spouse Entry Into Home: Ramp Prior Prior Level of Function SCALE: Activities may be completed with or without assistive devices. 3-Bpkhropdcd-amsfiai completes the activity by him/herself with no assistance from a helper. 5-Set-up or Clean-up Assistance-helper sets up or cleans up; patient completes activity. [place] assists only prior to or following the activity. 4-Supervision or Touching Assistance-helper provides verbal cues and/or touching/steadying and/or contact guard assistance as patient completes activity. Assistance may be provided throughout the activity or intermittently. 3-Partial/Moderate Assistance-helper does LESS THAN HALF the effort. [place] lifts, holds or supports trunk or limbs, but provides less than half the effort. 2-Substantial/Maximal Assistance-helper does MORE THAN HALF the effort. [place] lifts or holds trunk or limbs and provides more than half the effort. 9-Hmulzkjrg-tpsjhd does ALL the effort. Patient does none of the effort to complete the activity. Or, the assistance of 2 or more helpers is required for the patient to complete the activity. If activity was not attempted, code reason: 7-Patient Refused. 9-Not Applicable-not attempted and the patient did not perform the activity before the current illness, exacerbation or injury. 10-Not Attempted due to Environmental Limitations-(lack of equipment, weather restraints, etc.). 88-Not Attempted due to Medical Conditions or Safety Concerns. Bed Mobility: 6 Transfers (B,C,W/C): 6 Gait: 6 Indoor Mobility (Ambulation): Independent Prior Devices Use: Walker PT Evaluation-Current Subjective Patient agrees to PT. Objective Patient Orientation: Normal For Age ROM/Strength ROM Lower Extremities bilateral LE WFL Strength Lower Extremities 4-/5 grossly bilateral LE all planes Integumentary/Posture Bowel Incontinence: No Bladder Incontinence: No Posture slightly kyphotic Neuromuscular (Tone, Coordination, Reflexes) grossly intact Sensory Vision: Wears Glasses Hearing: Functional Transfers Lying to Sitting/Side of Bed(Q: 6 Sit to Stand (QC): 4 Chair/Xau-ch-Wzbsu Xfer(QC): 4 Gait Mode of Locomotion: Walk Anticipated Mode of Locomotion: Walk Walk 10 feet (QC): 4 Walk 50 ft with 2 Turns(QC): 4 Walk 150 ft (QC): 4 Distance: 225' Gait Assistive Device: FWW Comments/Gait Description slightly unsteady with CGA for safety Balance Sitting Static: Normal Sitting Dynamic: Normal Standing Static: Fair Standing Dynamic: Fair Assessment/Needs Patient will benefit from skilled PT to address functional strength and mobility to improve current LOF to safely return to home at maximum LOF. Rehab Potential: Fair PT Senior Care Goals Water Plumber Goals PT Senior Care Goals Time Frame: Sep 06, 2022 Roll Left & Right (QC): 6 Sit to Lying (QC): 6 Lying-Sitting on Side/Bed(QC): 6 Sit to Stand (QC): 6 Chair/Kvk-xp-Lmbzf Xfer(QC): 6 Toilet Transfer (QC): 6 Walk 10 feet (QC): 6 Walk 50ft with 2 Turns (QC): 6 Walk 150 ft (QC): 6 PT Plan Problem List Problem List: Activity Tolerance, Functional Strength, Safety, Balance, Gait, Transfer Treatment/Plan Treatment Plan: Continue Plan of Care Treatment Plan: Education, Functional Activity [place], Functional Strength, Gait, Safety, Therapeutic Exercise, Transfers Treatment Duration: Sep 06, 2022 Frequency: 6 times per week Estimated Hrs Per Day: .25 hour per day Patient and/or Family Agrees t: Yes Time Time In: 1110 Time Out: 1126 DATE: Aug 21, 2022 Total Billed Treatment Time: 16 Total Billed Treatment 1 visit [facility] 16 min GENOVEVA GOFF PT Aug 21, 2022 11:39
--- NOTE | 2022-08-21 12:16 | D/C HH Face to Face Order ---
D/C HH Face to Face Orders Reconcile Patient Problems Problems Reviewed?: Yes Instructions for Patient HH Patient Instructions/FollowUp: PCP 1 week Physician to follow Patient: PCP Discharge Diet for Home: No Restrictions Patient Problems: Debility New AF Patient Data-Allergies,Ht & Wt Patient Allergies: Coded Allergies: omeprazole (Verified Allergy, Unknown, 10/16/21) tramadol (Verified Allergy, Unknown, 10/16/21) Home Health Need/Face to Face Date of Face to Face: Aug 21, 2022 Clinical Findings: Generalized weakness and fatigue, Instability, Muscle weakness I have seen Pt [id number]: Yes Discharged To: Home Diagnosis/Conditions: Debility Patient is Homebound due to: Muscle weakness Homebound Status Due to the above stated illness, injury or surgical procedure (medical condition or diagnosis) and associated clinical findings, the patient is homebound because of his/her inability to leave home except with aid of a supportive device and/or person AND leaving the home requires a considerable and taxing effort or is medically contraindicated. Pt req the following assistanc: Walker Home Health Nursing Orders Home Health Services Order: Nursing Services, Laboratory Sampler-Evaluate & Treat, Physical Therapy-Evaluate & Treat Home Health Infusion Therapy Line Start Date: Aug 19, 2022 Certify Stmt I certify that this patient is under my care and that I, a nurse practitioner or a physician; a medical library assistant working with me, had a face to face encounter that - meets the physician face to face encounter requirements with this patient as dated. TIKI BAE DO Aug 21, 2022 12:16
--- NOTE | 2022-08-21 15:04 | Progress Note ---
ARIADNE LEDEZMA 08/21/22 1504: Progress Note Mr. Johnson is a 77 yo male with significant pmhx of HTN, high cholesterol, and aortic stenosis who presented to the ED with a cc of ongoing SOB and CP on exertion for past 4 weeks. Pt had negative stress test 1 month ago. In ED patient had new onset Afib. Given diltiazem 10mg. Pt had no hx of irregular hea rt rhythms. On admission patient received continuous ditiazem infusion. Rate controlled but still irregular. Electrolytes normal. Troponin negative. Cardiology was consulted and TTE and Cardioversion that converted patient back into sinus rhythm. Pt reported feeling better after cardioversion. Denied any SOB, CP, weakness, chills, SOLIS, N/V after being cardioverted. PT assessed patie nts conditioning. Pt discharged home with amiodrone and eliquis. KAELA BAE DO 08/22/22 0439: Supervisory-Addendum Brief Verification & Attestation Participated in pt care: history, MDM, physical Personally performed: exam, history, MDM, supervision of care Care discussed with: Medical Student Procedures: n/a Results interpretation: Verified all documentation Verification and Attestation of Medical Student E/M Service A medical student performed and documented this service in my presence. I reviewed and verified all information documented by the medical student and made modifications to such information, when appropriate. I personally performed the physical exam and medical decision making. Kaela Bae, Aug 22, 2022,04:39 ARIADNE LEDEZMA Aug 21, 2022 15:04 KAELA BAE DO Aug 22, 2022 04:39
[2022-08-21] MEDS ORDERED: TIMOLOL MALEATE 0.5% 5 ML (TIMOPTIC) BTL OU SCH (21:00)
[2022-08-21] MEDS ORDERED: NON-FORMULARY MEDICATION 1 EA EA (Lovastatin 40 MG) PO SCH (21:00)
[2022-08-21] MEDS ORDERED: DULoxetine 20 MG (CYMBALTA) CAP PO SCH (21:00)
[2022-08-21] MEDS ORDERED: FINASTERIDE (PROSCAR) 5 MG TAB PO SCH (21:00)
[2022-08-21] MEDS ORDERED: CYPROHEPTADINE HCL PO SCH (21:00)
[2022-08-21] MEDS ORDERED: FAMOTIDINE 20 MG (PEPCID) TABLET PO SCH (21:00)
[2022-08-21] MEDS ORDERED: ASPIRIN E.C. 81 MG (ECOTRIN) TAB PO SCH (21:00)
[2022-08-21] MEDS ORDERED: MELATONIN 3 MG TABLET PO SCH (21:00)
[2022-08-21] MEDS ORDERED: APIXABAN 5 MG (ELIQUIS) TABLET PO SCH (21:00)
[2022-08-21] MEDS ORDERED: AtorvaSTATin TABLET 10 MG TABLET PO SCH (21:00)
[2022-08-21] MEDS ORDERED: LOSARTAN 25 MG (COZAAR) TAB PO SCH (21:00)
[2022-08-21] MEDS ORDERED: LATANOPROST 0.005% (XALATAN) OPHTH SOLN 2.5 ML OU SCH (21:00)
--- NOTE | 2022-08-22 04:40 | Discharge Summary ---
Diagnosis/Chief Complaint Date of Admission Aug 20, 2022 at 00:40 Date of Discharge Aug 21, 2022 at 14:50 Discharge Date: Aug 21, 2022 Discharge Diagnosis New AF RVR Suspected CHETNA Reason Hospital Visit Discharge Summary Discharge Physical Examination Allergies: Coded Allergies: omeprazole (Verified Allergy, Unknown, 10/16/21) tramadol (Verified Allergy, Unknown, 10/16/21) Vitals & I&Os Vital Signs Date Time Temp Pulse Resp B/P (MAP) Pulse Ox O2 Delivery O2 Flow Rate FiO2 08/21/22 14:25 94 Room Air 08/21/22 10:00 113 32 164/81 (108) 08/21/22 04:00 36.6 08/20/22 08:09 21 General Appearance: Alert, Oriented X3, Cooperative Respiratory: Clear to Auscultation Cardiovascular: Regular Rate Psych/Mental Status: Mental Status NL Hospital Course Was the Problem List Reviewed?: Yes Mr. Johnson is a 77 yo male with significant pmhx of HTN, high cholesterol, and aortic stenosis who presented to the ED with a cc of ongoing SOB and CP on exertion for past 4 weeks. Pt had negative stress test 1 month ago. In ED patient had new onset Afib. Given diltiazem 10mg. Pt had no hx of irregular heart rhythms. On admission patient received continuous ditiazem infusion. Rate controlled but still irregular. Electrolytes normal. Troponin negative. Cardiology was consulted and TTE and Cardioversion that converted patient back into sinus rhythm. Pt reported feeling better after cardioversion. Denied any SOB, CP, weakness, chills, SOLIS, N/V after being cardioverted. PT assessed patients conditioning. Pt discharged home with amiodrone and eliquis. ARIADNE LEDEZMA Labs (last 24 hrs) Laboratory Tests 08/19/22 19:38: White Blood Count 7.5, Red Blood Count 4.62, Hemoglobin 14.4, Hematocrit 42, Mean Corpuscular Volume 90, Mean Corpuscular Hemoglobin 31, Mean Corpuscular Hemoglobin Concent 35, Red Cell Distribution Width 14.0, Platelet Count 194, Mean Platelet Volume 11.3, Immature Granulocyte % (Auto) 0, Neutrophils (%) (Auto) 63, Lymphocytes (%) (Auto) 28, Monocytes (%) (Auto) 6, Eosinophils (%) (Auto) 2, Basophils (%) (Auto) 0, Neutrophils # (Auto) 4.7, Lymphocytes # (Auto) 2.1, Monocytes # (Auto) 0.5, Eosinophils # (Auto) 0.2, Basophils # (Auto) 0.0, Immature Granulocyte # (Auto) 0.0, Prothrombin Time 12.4, INR Comment 0.9, Activated Partial Thromboplast Time 27, D-Dimer 0.69H, Sodium Level 140, Potassium Level 4.1, Chloride Level 104, Carbon Dioxide Level 23, Anion Gap 13, Blood Urea Nitrogen 19H, Creatinine 1.06, Estimat Glomerular Filtration Rate 71, BUN/Creatinine Ratio 18, Glucose Level 139H, Lactic Acid Level 2.59*H, Calcium Level 10.3H, Corrected Calcium 9.9, Magnesium Level 2.0, Total Bilirubin 0.5, Aspartate Amino Transf (AST/SGOT) 33, Alanine Aminotransferase (ALT/SGPT) 32, Alkaline Phosphatase 111, Troponin I < 0.30, Pro-B-Type Natriuretic Peptide 989.9H, Total Protein 7.4, Albumin 4.5 08/19/22 22:13: Urine Color YELLOW, Urine Clarity CLEAR, Urine pH 6.0, Urine Specific [place] 1.020, Urine Protein NEGATIVE, Urine Glucose (UA) NEGATIVE, Urine Ketones NEGATIVE, Urine Nitrite NEGATIVE, Urine Bilirubin NEGATIVE, Urine Urobilinogen 0.2, Urine Leukocyte Esterase NEGATIVE, Urine RBC (Auto) NEGATIVE, Urine RBC NONE, Urine WBC 0-2, Urine Squamous Epithelial Cells 0-2, Urine Crystals NONE, Urine Bacteria NEGATIVE, Urine Casts PRESENT, Urine Hyaline Casts RARE, Urine Mucus NEGATIVE, Urine Culture Indicated NO, Urine Opiates Screen NEGATIVE, Urine Oxycodone Screen NEGATIVE, Urine Methadone Screen NEGATIVE, Urine Propoxyphene Screen NEGATIVE, Urine Barbiturates Screen NEGATIVE, Ur Tricyclic Antidepressants Screen NEGATIVE, Urine Phencyclidine Screen NEGATIVE, Urine Amphetamines Screen NEGATIVE, Urine Methamphetamines Screen NEGATIVE, Urine Benzodiazepines Screen NEGATIVE, Urine Cocaine Screen NEGATIVE, Urine Cannabinoids Screen NEGATIVE 08/19/22 22:45: Lactic Acid Level 1.65 08/20/22 00:40: Lab Scanned Report LAB Reports 08/20/22 03:50: White Blood Count 7.3, Red Blood Count 4.07L, Hemoglobin 12.6L, Hematocrit 37L, Mean Corpuscular Volume 90, Mean Corpuscular Hemoglobin 31, Mean Corpuscular Hemoglobin Concent 34, Red Cell Distribution Width 13.8, Platelet Count 143, Mean Platelet Volume 11.0, Immature Granulocyte % (Auto) 0, Neutrophils (%) (Auto) 66, Lymphocytes (%) (Auto) 24, Monocytes (%) (Auto) 8, Eosinophils (%) (Auto) 2, Basophils (%) (Auto) 0, Neutrophils # (Auto) 4.8, Lymphocytes # (Auto) 1.7, Monocytes # (Auto) 0.6, Eosinophils # (Auto) 0.1, Basophils # (Auto) 0.0, Immature Granulocyte # (Auto) 0.0, Sodium Level 142, Potassium Level 3.8, Chloride Level 110H, Carbon Dioxide Level 20L, Anion Gap 12, Blood Urea Nitrogen 20H, Creatinine 0.85, Estimat Glomerular Filtration Rate 88, BUN/Creatinine R atio 24, Glucose Level 127H, Lactic Acid Level 0.90, Calcium Level 9.2, Phosphorus Level 3.4, Magnesium Level 1.8, Total Bilirubin 0.5, Direct Bilirubin 0.2, Indirect Bilirubin 0.3, Aspartate Amino Transf (AST/SGOT) 30, Alanine Aminotransferase (ALT/SGPT) 31, Alkaline Phosphatase 74, Total Protein 6.3L, Albumin 3.7 08/21/22 04:19: White Blood Count 7.9, Red Blood Count 3.72L, Hemoglobin 11.7L, Hematocrit 34L, Mean Corpuscular Volume 92, Mean Corpuscular Hemoglobin 31, Mean Corpuscular Hemoglobin Concent 34, Red Cell Distribution Width 14.2, Platelet Count 134, Mean Platelet Volume 11.4, Immature Granulocyte % (Auto) 0, Neutrophils (%) (Auto) 74, Lymphocytes (%) (Auto) 17, Monocytes (%) (Auto) 7, Eosinophils (%) (Auto) 2, Basophils (%) (Auto) 0, Neutrophils # (Auto) 5.8, Lymphocytes # (Auto) 1.4, Monocytes # (Auto) 0.6, Eosinophils # (Auto) 0.1, Basophils # (Auto) 0.0, Immature Granulocyte # (Auto) 0.0, Sodium Level 139, Potassium Level 3.9, Chloride Level 108H, Carbon Dioxide Level 20L, Anion Gap 11, Blood Urea Nitrogen 14, Creatinine 0.87, Estimat Glomerular Filtration Rate 88, BUN/Creatinine Ratio 16, Glucose Level 134H, Calcium Level 9.1, Phosphorus Level 2.9, Magnesium Level 1.9, Total Bilirubin 1.0, Aspartate Amino Transf (AST/SGOT) 29, Alanine Aminotransferase (ALT/SGPT) 29, Alkaline Phosphatase 77, Total Protein 6.1L, Albumin 3.7, Percent Immature Platelet Fraction 5.0, Corrected Calcium 9.3 Pending Labs Laboratory Tests 08/19/22 19:38: White Blood Count 7.5, Red Blood Count 4.62, Hemoglobin 14.4, Hematocrit 42, Mean Corpuscular Volume 90, Mean Corpuscular Hemoglobin 31, Mean Corpuscular Hemoglobin Concent 35, Red Cell Distribution Width 14.0, Platelet Count 194, Mean Platelet Volume 11.3, Immature Granulocyte % (Auto) 0, Neutrophils (%) (Auto) 63, Lymphocytes (%) (Auto) 28, Monocytes (%) (Auto) 6, Eosinophils (%) (Auto) 2, Basophils (%) (Auto) 0, Neutrophils # (Auto) 4.7, Lymphocytes # (Auto) 2.1, Monocytes # (Auto) 0.5, Eosinophils # (Auto) 0.2, Basophils # (Auto) 0.0, Immature Granulocyte # (Auto) 0.0, Prothrombin Time 12.4, INR Comment 0.9, Activated Partial Thromboplast Time 27, D-Dimer 0.69, Sodium Level 140, Potassium Level 4.1, Chloride Level 104, Carbon Dioxide Level 23, Anion Gap 13, Blood Urea Nitrogen 19, Creatinine 1.06, Estimat Glomerular Filtration Rate 71, BUN/Creatinine Ratio 18, Glucose Level 139, Lactic Acid Level 2.59, Calcium Level 10.3, Corrected Calcium 9.9, Magnesium Level 2.0, Total Bilirubin 0.5, Aspartate Amino Transf (AST/SGOT) 33, Alanine Aminotransferase (ALT/SGPT) 32, Alkaline Phosphatase 111, Troponin I < 0.30, Pro-B-Type Natriuretic Peptide 989.9, Total Protein 7.4, Albumin 4.5 08/19/22 22:13: Urine Color YELLOW, Urine Clarity CLEAR, Urine pH 6.0, Urine Specific [place] 1.020, Urine Protein NEGATIVE, Urine Glucose (UA) NEGATIVE, Urine Ketones NEGATIVE, Urine Nitrite NEGATIVE, Urine Bilirubin NEGATIVE, Urine Urobilinogen 0.2, Urine Leukocyte Esterase NEGATIVE, Urine RBC (Auto) NEGATIVE, Urine RBC NONE, Urine WBC 0-2, Urine Squamous Epithelial Cells 0-2, Urine Crystals NONE, Urine Bacteria NEGATIVE, Urine Casts PRESENT, Urine Hyaline Casts RARE, Urine Mucus NEGATIVE, Urine Culture Indicated NO, Urine Opiates Screen NEGATIVE, Urine Oxycodone Screen NEGATIVE, Urine Methadone Screen NEGATIVE, Urine Propoxyphene Screen NEGATIVE, Urine Barbiturates Screen NEGATIVE, Ur Tricyclic Antidepressants Screen NEGATIVE, Urine Phencyclidine Screen NEGATIVE, Urine Amphetamines Screen NEGATIVE, Urine Methamphetamines Screen NEGATIVE, Urine Benzodiazepines Screen NEGATIVE, Urine Cocaine Screen NEGATIVE, Urine Cannabinoids Screen NEGATIVE 08/19/22 22:45: Lactic Acid Level 1.65 08/20/22 00:40: Lab Scanned Report LAB Reports 08/20/22 03:50: White Blood Count 7.3, Red Blood Count 4.07, Hemoglobin 12.6, Hematocrit 37, Mean Corpuscular Volume 90, Mean Corpuscular Hemoglobin 31, Mean Corpuscular Hemoglobin Concent 34, Red Cell Distribution Width 13.8, Platelet Count 143, Mean Platelet Volume 11.0, Immature Granulocyte % (Auto) 0, Neutrophils (%) (Auto) 66, Lymphocytes (%) (Auto) 24, Monocytes (%) (Auto) 8, Eosinophils (%) (Auto) 2, Basophils (%) (Auto) 0, Neutrophils # (Auto) 4.8, Lymphocytes # (Auto) 1.7, Monocytes # (Auto) 0.6, Eosinophils # (Auto) 0.1, Basophils # (Auto) 0.0, Immature Granulocyte # (Auto) 0.0, Sodium Level 142, Potassium Level 3.8, Chloride Level 110, Carbon Dioxide Level 20, Anion Gap 12, Blood Urea Nitrogen 20, Creatinine 0.85, Estimat Glomerular Filtration Rate 88, BUN/Creatinine Ratio 24, Glucose Level 127, Lactic Acid Level 0.90, Calcium Level 9.2, Phosphorus Level 3.4, Magnesium Level 1.8, Total Bilirubin 0.5, Direct Bilirubin 0.2, I ndirect Bilirubin 0.3, Aspartate Amino Transf (AST/SGOT) 30, Alanine Aminotransferase (ALT/SGPT) 31, Alkaline Phosphatase 74, Total Protein 6.3, Albumin 3.7 08/21/22 04:19: White Blood Count 7.9, Red Blood Count 3.72, Hemoglobin 11.7, Hematocrit 34, Mean Corpuscular Volume 92, Mean Corpuscular Hemoglobin 31, Mean Corpuscular Hemoglobin Concent 34, Red Cell Distribution Width 14.2, Platelet Count 134, Mean Platelet Volume 11.4, Immature Granulocyte % (Auto) 0, Neutrophils (%) (Auto) 74, Lymphocytes (%) (Auto) 17, Monocytes (%) (Auto) 7, Eosinophils (%) (Auto) 2, Basophils (%) (Auto) 0, Neutrophils # (Auto) 5.8, Lymphocytes # (Auto) 1.4, Monocytes # (Auto) 0.6, Eosinophils # (Auto) 0.1, Basophils # (Auto) 0.0, Immature Granulocyte # (Auto) 0.0, Sodium Level 139, Potassium Level 3.9, Chloride Level 108, Carbon Dioxide Level 20, Anion Gap 11, Blood Urea Nitrogen 14, Creatinine 0.87, Estimat Glomerular Filtration Rate 88, BUN/Creatinine Ratio 16, Glucose Level 134, Calcium Level 9.1, Phosphorus Level 2.9, Magnesium Level 1.9, Total Bilirubin 1.0, Aspartate Amino Transf (AST/SGOT) 29, Alanine Aminotransferase (ALT/SGPT) 29, Alkaline Phosphatase 77, Total Protein 6.1, Albumin 3.7, Percent Immature Platelet Fraction 5.0, Corrected Calcium 9.3 Discharge Home Medications: Active Scripts Active Eliquis (Apixaban) 5 Mg Tablet 5 Mg PO BID 30 Days Toprol Xl (Metoprolol Succinate) 25 Mg Tab.er.24h 25 Mg PO DAILY Amiodarone HCl 200 Mg Tablet 200 Mg PO UD Take 2 tablet twice daily for 2 weeks then Take 1 tablet twice daily Reported Analgesic Sterrett 15%-10% (Methyl Salicylate/Menthol) 15 %-10 % Cream..g. 1 Applic TP TID PRN APPLY TO LEFT SHOULDER Lovastatin 40 Mg Tablet 40 Mg PO HS Multivitamin 1 Each Tablet 1 Each PO DAILY Miralax (Polyethylene Glycol 3350) 17 Gram Powd.pack 17 Gm PO DAILY PRN Xalatan (Latanoprost) 0.005 % Drops 1 Drop OU HS Tizanidine HCl 4 Mg Tablet 2 Mg PO BID PRN TAKES (4MG) TABLET Losartan Potassium 25 Mg Tablet 25 Mg PO HS Finasteride 5 Mg Tablet 5 Mg PO HS Duloxetine HCl 20 Mg Capsule.dr 20 Mg PO HS Cyproheptadine HCl 4 Mg Tablet 8 Mg PO HS TAKES 2 (4MG) TABLETS Timolol Maleate 0.5% (Timolol Maleate) 0.5 % Drops 1 Drop OU BID Melatonin 3 Mg Tablet 12 Mg PO HS TAKES 4 (3MG) TABLETS Acid Special Education Paraeducator (FAMOTIDINE) (Famotidine) 20 Mg Tablet 20 Mg PO BID Vitamin D3 (Cholecalciferol (Vitamin D3)) 25 Mcg (1000 Unit) Tablet 25 Mcg PO DAILY Aspirin EC (Aspirin) 81 Mg Tablet.dr 81 Mg PO HS Tylenol (Acetaminophen) 325 Mg Tablet 650 Mg PO Q6H PRN Instructions to patient/family Please see electronic discharge instructions given to patient. Diagnosis/Problems Diagnosis/Problems (1) New onset a-fib Status: Acute TIKI BAE DO Aug 22, 2022 04:40
[2022-08-22] MEDS ORDERED: MULTIVIT W/MINERALS TAB (THERAGRAN M) PO SCH (07:00)
[2022-08-22] MEDS ORDERED: VITAMIN D3 25 MCG (1,000 UNITS) TABLET PO SCH (09:00)
== END 2022-08-21 14:50 | disposition home or self-care (01) ==
LOC: EDUNIT# 19:27 → ER FS 19:28 → ICU 19:30 → UNDOADMOB 08-20 00:40 → ICU 08-20 00:40 → UNDODISOB 08-21 14:50
PROVIDERS: ADMIT Internal Medicine; ATTEND Internal Medicine
DX: I48.91 Unspecified atrial fibrillation (principal); E86.0 Dehydration; N40.0 Benign prostatic hyperplasia without lower urinary tract symptoms; I10 Essential (primary) hypertension; I35.0 Nonrheumatic aortic (valve) stenosis; I25.10 Atherosclerotic heart disease of native coronary artery without angina pectoris; E78.00 Pure hypercholesterolemia, unspecified; G62.9 Polyneuropathy, unspecified; I65.23 Occlusion and stenosis of bilateral carotid arteries; K46.9 Unspecified abdominal hernia without obstruction or gangrene; J98.4 Other disorders of lung; H91.90 Unspecified hearing loss, unspecified ear; R00.0 Tachycardia, unspecified; F43.10 Post-traumatic stress disorder, unspecified; F32.A Depression, unspecified; Z79.899 Other long term (current) drug therapy
CPT/HCPCS: 36415; 51702; 71045; 80048; 80053; 80076; 80306; 81000; 83605; 83735; 83880; 84100; 84484; 85025; 85379; 85610; 85730; 87081; 93005; 93041; 93306; 94640; 96366; 96372; 96376; G0378

== ENCOUNTER 2023-01-07 11:00 | Day surgery (SDC) | payer MEDICARE, OTHER ==
[~2023-01-07] VITALS: Ht 190 cm; Wt 108.9 kg
[2023-01-07] VITALS (7 sets, daily range): BP systolic 117–164; BP diastolic 57–74
[2023-01-07 09:40] LABS: HEMATOCRIT 43 % (40-54); HEMOGLOBIN 14.5 g/dL (13.3-17.7); MEAN CORPUSCULAR HEMOGLOBIN 31 pg (25-34); MEAN CORPUSCULAR HGB CONC 34 g/dL (32-36); MEAN CORPUSCULAR VOLUME 92 fL (80-99); MEAN PLATELET VOLUME 10.2 fL (9.0-12.2); PLATELET COUNT 159 10^3/uL (130-400); WHITE BLOOD COUNT 5.5 10^3/uL (4.3-11.0)
--- NOTE | 2023-01-07 09:43 | Diagnostic Imaging Report ---
CHEST 1 VIEW, AP/PA ONLY INDICATION: BRADYCARDIA. COMPARISON: Chest radiograph 08/19/2022. FINDINGS: Lungs: Normal lung volume. No focal consolidation. Pleura: No pleural effusion or pneumothorax. Heart and Mediastinum: Cardiomegaly. Pulmonary vascularity is within normal limits. Osseous Structures and Soft Tissues: No acute osseous abnormality. Normal soft tissues. IMPRESSION: Cardiomegaly. No focal consolidation or rober pulmonary edema. Dictated by: Dictated on workstation # [id number]
[2023-01-07 10:00] LABS: INR 0.9 (0.8-1.4); PROTHROMBIN TIME PATIENT 12.7 SEC (12.2-14.7)
[2023-01-07 10:06] LABS: ALANINE AMINOTRANSFERASE 72 U/L (0-55); ALBUMIN 4.8 GM/DL (3.2-4.5); ALKALINE PHOSPHATASE 143 U/L (40-136); BUN/CREATININE RATIO 10; CALCIUM 10.4 MG/DL (8.5-10.1); CARBON DIOXIDE 25 MMOL/L (21-32); CHLORIDE 104 MMOL/L (98-107); CREATININE SERUM 1.23 MG/DL (0.60-1.30); GFR ESTIMATED 60; GLUCOSE 130 MG/DL (70-105); POTASSIUM 3.8 MMOL/L (3.6-5.0); SODIUM 140 MMOL/L (135-145); TOTAL PROTEIN 7.7 GM/DL (6.4-8.2)
[~2023-01-07 11:00] MED LIST changes: +AMIO200T65 PO; +APIX5TAB PO; +DORZ10DR27 OU; +HEParin (CATH LAB) 1,000 ML IV ONE; +IBUP-2473 PO; +LATA2.5D19 OU; +LIDOCAINE 1% INJ 20 ML VIAL ONE; +LOSA50TA63 PO; +LOVA40TA2 PO; +METH85CR TP; +METO-351 PO; +MULT-1136 PO; +NS IV 1000 ML 1,000 ML IV ONE; +NS IV 1000 ML 2,000 ML ONE; +RIVA20TA PO; +ROSU40TA23 PO; +TIMO5DRO16 OU; -TIMO5DRO5 OU
--- NOTE | 2023-01-07 11:35 | Cardiac Procedure Note-CS/ASA ---
Pre-Procedure Note Pre-Op Procedure Note Date of Available H&P: Jan 01, 2023 Date H&P Reviewed: Jan 07, 2023 Time H&P Reviewed: 11:35 History & Physical: H&P Reviewed, Patient Examed, No changes noted Pre-Operative Diagnosis: SSS Moderate Sedation PreProcedure Time 11:35 ASA Score 3 Airway Lungs Heart ASA score ASA 1: a normal healthy patient ASA 2: a patient with a mild systemic disease (mid diabetes, controlled hypertension, obesity ASA 3: a patient with a severe systemic disease that limits activity (angina, COPD, prior Myocardial infarction) ASA 4: a patient with an incapacitating disease that is a constant threat to life (CHF, renal failure) ASA 5: a moribund patient not expected to survive 24 hrs. (ruptured aneurysm) ASA 6: a declared brain- patient whose organs are being harvested. For emergent operations, add the letter E after the classification Mallampati Classification Grade 3 Sedation Plan Analgesia, Amnesia, Plan communicated to team members, Discussed options with patient/fam, Discussed risks with patient/fam The patient is an appropriate candidate to undergo the planned procedure, sedation, and anesthesia. The patient immediately re-assessed prior to indication. KRISTEN JACKSON MD Jan 07, 2023 11:35
[2023-01-07] MEDS ORDERED: NS (IVPB) 50 ML 50 ML ONE (11:40)
[2023-01-07] MEDS ORDERED: MIDAZOLAM INJ 5 MG/5 ML VIAL ONE (11:40)
[2023-01-07] MEDS ORDERED: ceFAZolin INJECTION 1,000 MG ONE (11:40)
[2023-01-07] MEDS ORDERED: fentaNYL INJECTION 100 MCG/2 ML VIAL ONE (11:40)
[2023-01-07] MEDS ORDERED: NS IV 1000 ML 1,000 ML IV SCH (13:30)
[2023-01-07] MEDS ORDERED: PATIENT MAY USE OWN MEDS, ALL PO SCH (13:30)
[2023-01-07] MEDS ORDERED: MELATONIN 3 MG TABLET PO PRN (13:30)
[2023-01-07] MEDS ORDERED: ACETAMINOPHEN 325 MG TABLET PO PRN (13:30)
--- NOTE | 2023-01-07 13:35 | Permanent Pacemaker Implant ---
Dual Chamber Pacemaker Implant PROCEDURE PHYSICIAN: Kristen Chávez DUAL CHAMBER PACEMAKER IMPLANTATION: DATE OF PROCEDURE: 01/07/23 INDICATION: Bradycardia, sinus node dysfunction PREOPERATIVE DIAGNOSIS: Sinus node dysfunction POSTOPERATIVE DIAGNOSIS: Sinus node dysfunction HISTORY: Dual-chamber permanent pacemaker was recommended. PROCEDURE PERFORMED: 1. Dual-chamber permanent pacemaker implantation. 2. Fluoroscopy. 3. Central venous access. ANESTHESIA: Local anesthesia, conscious sedation. COMPLICATIONS: None. ESTIMATED BLOOD LOSS:20 mL. SPECIMENS: None. ORAL ANTICOAGULATION: None. FLUOROSCOPY TIME: FLUOROSCOPY DOSE: CONTRAST DOSE: PROCEDURE DETAILS: The patient is a 77 male with history of paroxysmal atrial fibrillation, sinus node dysfunction, episodes of bradycardia and multiple long pauses. Cardiac pacemaker was advised. And after all of the patients questions were answered, the patient was brought to the EP Lab. The patient's left chest was prepped and draped in sterile fashion. A 2 inch horizontal incision was made 1 cm below the clavicle and dissection carried down to the pectoralis fascia. Using the modified Seldinger technique and under fluoroscopy guidance, the anterior aspect of the left axillary vein was accessed 2 times. The J wires were secured to the drapes with a mosquito clamp. A 7-Ugandan sheath was introduced over one of the J-wires. The RV lead was then inserted. The RV lead was directed across the tricuspid valve to the apical septal portion of the right ventricle. The position was checked in FANI and EAGLE views. The screw was deployed and the lead connected to the cnc lathe programmer. Close sensing and pacing thresholds were obtained. Diaphragmatic pacing was ruled out. The lead was secured with 2-0 silk ties to the underlying muscle and fascia. Next, a 7-[place] sheath was introduced through the remaining J-wire. An atrial lead was then introduced and guided to the level of the right appendage. The screw was deployed and the lead was connected to the interrogator. Good sensing and pacing thresholds were obtained. Diaphragmatic pacing was ruled out. The leads were secured with 2-0 silk ties to the underlying muscle and fascia. The leads were connected to the device in a hermetic fashion. The device and leads were placed in the pocket. Aggressive irrigation with saline solution was done. The device was secured to the underlying muscle and fascia with a 2-0 silk tie. interrogation of the device revealed good integrity of all the leads and good connections. The wound was then closed using 2 layers. The first layer was interrupted 2-0 absorbable Vicryl suture. The last layer was a single subcuticular layer with 4- 0 Vicryl suture. Half inch Steri-Strips and a small dressing were then applied to the wound. The patient tolerated the procedure well and was returned to the recovery room in stable condition with stable vital signs. DEVICE INFORMATION: BOZENA XT DR DREW [id number] RA LEAD: [id number] RV LEAD: [id number] PER-OPERATIVE DEVICE INTERROGATION: Good sensing and capture activity IMMEDIATE POSTOPERATIVE DEVICE INTERROGATION: P wave 2.5 mV pacing impedance 513, pacing threshold 0.75 at 0.4 ms R wave 20 mV, pacing impedance 570, pacing threshold in the ventricle 1 V at 0.4 ms PLAN: The patient transferred to the ICU. We will continue with two more doses of IV antibiotics. We will check a chest x-ray and interrogate the device in the morning. The patient will continue on oral antibiotics for 5 days. CONCLUSION: Successful implantation of dual-chamber pacemaker with no complication FINAL DIAGNOSIS: Paroxysmal atrial fibrillation Sinus node dysfunction Hypertension Bradycardia KRISTEN CHÁVEZ MD Jan 07, 2023 13:35
--- NOTE | 2023-01-07 14:30 | Diagnostic Imaging Report ---
INDICATION: Pacemaker COMPARISON: 01/07/2023 FINDINGS: Single frontal view of the chest demonstrates normal heart size and pulmonary vascularity. The lungs are well aerated and clear. No large pleural effusion or pneumothorax is seen. The visualized osseous structures show no acute abnormalities. Left-sided dual-lead pacemaker is noted. IMPRESSION: 1. No acute cardiopulmonary process. 2. New left-sided dual-lead pacemaker. Dictated by: Dictated on workstation # [id number]
[2023-01-07] MEDS: ceFAZolin INJECTION 1,000 MG in NS (IVPB) 50 ML 50 ML IV SCH (18:53)
[2023-01-07] MEDS ORDERED: AMIODARONE 200 MG TABLET PO SCH (21:00)
[2023-01-07] MEDS ORDERED: APIXABAN 5 MG TABLET PO SCH (21:00)
[2023-01-07] MEDS ORDERED: FINASTERIDE 5 MG TABLET PO SCH (21:00)
[2023-01-07] MEDS ORDERED: LOSARTAN 50 MG TABLET PO SCH (21:00)
[2023-01-07] MEDS ORDERED: NON-FORMULARY MEDICATION 1 EA EA (Dorzolamide HCl/Pf (Dorzolamide 2% Eye Drop) 1 DROP) OU SCH (21:00)
[2023-01-07] MEDS ORDERED: CYPROHEPTADINE 4 MG TABLET PO SCH (21:00)
[2023-01-07] MEDS ORDERED: FAMOTIDINE 20 MG TABLET PO SCH (21:00)
[2023-01-07] MEDS ORDERED: CYPROHEPTADINE HCL PO SCH (21:00)
[2023-01-07] MEDS ORDERED: DULoxetine 20 MG CAPSULE PO SCH (21:00)
[2023-01-08] VITALS: BP 144/71
[2023-01-08] MEDS: ceFAZolin INJECTION 1,000 MG in NS (IVPB) 50 ML 50 ML IV SCH (03:33)
[2023-01-08 04:00] VITALS: BP 143/68
[2023-01-08] MEDS ORDERED: CEFU500T63 PO (06:29)
--- NOTE | 2023-01-08 06:29 | Discharge Inst-Post CATH ---
Discharge Inst-CATH/EP Problems Reviewed?: Yes Post Cardiac Cath/EP D/C Inst Follow Up/Plan Appointment with Dr Chávez in one week <b>CARDIAC CATH/EP PROCEDURE DISCHARGE INSTRUCTIONS</b> ACTIVITY * Go Home directly and rest. * Limit activity of the leg (or wrist if it was used) for 7 days including aerobics, swimming, jogging, bicycling, etc. * Restrict stair-climbing for 7 days if possible, if not, climb up with your non-cath leg, then bring together on the same step. * Avoid lifting, pushing, pulling or excessive movement of the affected extremity for 7 days. * Customary sexual activity may be resumed after 2 days-use caution not to use a position that strains or causes pain to the affected extremity. * No driving for 24 hours. * NO SMOKING. * Avoid straining for bowel movements for 7 days. * Gentle walking on level ground is allowed. * Returning to work will depend on the type of procedure and the results. Your doctor will discuss this with you. CALL YOUR DOCTOR FOR ANY OF THE FOLLOWING: *If bleeding from the puncture site occurs- Apply gentle pressure to site with clean cloth and call your doctor or EMS. * If a knot or lump forms under the skin, increases in size, or causes pain. * If bruising appears to be worsening or moving further down your leg instead of disappearing. * Temperature above 101 F. CARE OF YOUR GROIN INCISION; * Bruising or purple discoloration of the skin near the puncture site is common. * You may shower only, no bathtub bathing for 5 days. Be careful to avoid slipping as your leg may feel stiff. * If a closure device was used on your femoral artery, please see the attached guide regarding care of the device and your leg. * Leave dressing on FOR 24 hours. CARE OF YOUR WRIST INCISION; * Bruising or purple discoloration of the skin near the puncture site is common. * You may shower. * DO NOT submerge wrist. * Leave dressing on FOR 24 hours. KRISTEN CHÁVEZ MD Jan 08, 2023 06:29
[2023-01-08] MEDS ORDERED: THERAPEUTIC MULTIVITAMIN W/MINERALS TABLET PO SCH (07:00)
[2023-01-08 08:00] VITALS: BP 130/60
[2023-01-08 08:20] VITALS: BP 130/80
--- NOTE | 2023-01-08 08:22 | Cardiology Progress Note ---
Subjective Date Seen by Provider: Jan 08, 2023 Time Seen by Provider: 08:21 Subjective/Events-last exam Patient was seen at bedside, laying down comfortably, site is healing well Objective-Cardiology Exam Last Set of Vital Signs Vital Signs 01/07/23 01/08/23 09:37 04:00 Temp 36.1 Pulse 60 Resp 17 B/P (MAP) 143/68 (93) Pulse Ox 93 I&O Intake and Output 01/08/23 00:00 Intake Total 550 ml Output Total 300 ml Balance 250 ml Intake Oral 500 ml IV Total 50 ml Output Urine Total 300 ml Daily Weight Change No General: Alert, Oriented X3, Cooperative HEENT: Atraumatic, PERRLA Neck: Supple, No JVD, No Thyromegaly Lungs: Clear to Auscultation, Normal Air Movement Heart: Regular Rate, Normal S1, Normal S2, No Murmurs Abdomen: Normal Bowel Sounds, Soft, No Tenderness, No Hepatosplenomegaly, No Masses Extremities: No Clubbing, No Cyanosis, No Edema, Normal Pulses, No Tenderness/Swelling Skin: No Rashes, No Breakdown, No Significant Lesion Neuro: Normal Gait, Normal Speech, Strength at 5/5 X4 Ext, Normal Tone, Sensation Intact Psych/Mental Status: Mental Status NL, Mood NL Results Lab Laboratory Tests 01/07/23 09:34 A/P-Cardiology Admission Diagnosis Sinus node dysfunction Paroxysmal atrial fibrillation Hypertension Hyperlipidemia Assessment/Plan Sinus node dysfunction, paroxysmal atrial fibrillation Severe bradycardia Status post dual-chamber pacemaker implantation Site is clear Planning for discharge and follow-up as an outpatient Hypertension, monitor blood pressure Hyperlipidemia KRISTEN JACKSON MD Jan 08, 2023 08:22
[2023-01-08] MEDS ORDERED: MULTIVITAMIN PO SCH (09:00)
[2023-01-08] MEDS ORDERED: VITAMIN D3 25 MCG (1,000 UNITS) TABLET PO SCH (09:00)
== END 2023-01-08 08:20 | disposition home or self-care (01) ==
LOC: CATH 11:00 → CSD 14:30 → CATH 01-08 08:20
PROVIDERS: ATTEND Internal Medicine Cardiovascular Disease
DX: I49.5 Sick sinus syndrome (principal); I48.0 Paroxysmal atrial fibrillation; I10 Essential (primary) hypertension; I25.10 Atherosclerotic heart disease of native coronary artery without angina pectoris; I35.0 Nonrheumatic aortic (valve) stenosis; G62.9 Polyneuropathy, unspecified; N40.0 Benign prostatic hyperplasia without lower urinary tract symptoms; I65.23 Occlusion and stenosis of bilateral carotid arteries; E78.2 Mixed hyperlipidemia; F32.A Depression, unspecified; F43.10 Post-traumatic stress disorder, unspecified; Z87.891 Personal history of nicotine dependence; Z79.899 Other long term (current) drug therapy; Z79.82 Long term (current) use of aspirin; Z79.01 Long term (current) use of anticoagulants
CPT/HCPCS: 33208; 36415; 71045; 80053; 85027; 85610; 85730; 87081; 93005